=== PATIENT | male | born 1935 | race Caucasian/White ===

== ENCOUNTER 2016-05-25 19:19 | Inpatient (IN) | payer MEDICARE ==
[~2016-05-25] VITALS: Ht 165.1 cm; Wt 93.2 kg
[~2016-05-25 19:19] MED LIST: ALBU8.5H4 IH; ALLO300T29 PO; ASC500 PO; ASPI81TA2 PO; COR625 PO; INSU100C8 SQ; INSU100V7 SQ; LEVO750T9 PO; LSNP5T1 PO; PRE10 PO; PRE20 PO; PRE5 PO; QVAR40INH INH; SERT100T PO; SMV40T PO; URO10ERT PO
[2016-05-25 21:49] VITALS: BP 115/80; PULSE 100; RESP 24; O2SAT 97
[2016-05-25] MEDS ORDERED: AMIODARONE IV SCH ×2 (23:00)
[2016-05-25] MEDS ORDERED: DEXTROSE IV SCH ×2 (23:00)
[2016-05-25] MEDS ORDERED: Alum-Mag Hydrox-Simeth 30 mL Suspension PO PRN (23:20)
[2016-05-25] MEDS ORDERED: Ondansetron 2 mg/mL 2 mL Inj IVPUSH PRN (23:20)
[2016-05-25] MEDS ORDERED: Polyethylene Glycol (PEG) 17 Gm Powder PO PRN (23:20)
[2016-05-25] MEDS: Amiodarone 360 mg/200 mL D5W 360 MG in IV Premix 1 EACH IV SCH (23:51)
[2016-05-26] VITALS (8 sets, daily range): BP systolic 95–123; BP diastolic 56–81; PULSE 59–98; RESP 16–24; O2SAT 91–99
--- NOTE | 2016-05-26 00:17 | PCM.HPMED ---
Subjective Date of Service May 25, 2016 Primary Provider: Admitting Physician: Alvarado Villanueva MD Primary Care Physician: Roberth Duke MD Attending Physician: Alvarado Villanueva MD Admit Status: Direct Admit Chief Complaint: Generalized weakness, falls, near syncope History of Present Illness: Alban is a pleasant 81-year-old male with history of A. fib with RVR, diabetes mellitus type II on NovoLog and Lantus, coronary artery disease status post CABG , hypertension, hyperlipidemia, renal insufficiency who presented for direct admit to [facility] as direct transfer from [facility] with complaint of one-week history of falling, denied hitting head generalized weakness, and instability. At [facility] patient was found to be hypokalemic at 2.8, and EKG showed patient was in A. fib / RVR with aberrancy. Patient's potassium was repleted. Troponin was negative. Chest x-ray showed low lung volumes and cardiomegaly, nonspecific reticular opacity in the mid to low lung similar to prior exam. Patient was negative for UTI and pneumonia. Last echo showed ejection fraction of 50%. Cardiology was consulted and recommended Amiodarone drip for A. fib with RVR, which was started at [facility] ED. However hospital did not have sufficient beds for admission and patient was transferred to [facility]. At [facility] his daughter Beverly who is the DPOA states she found patient in kitchen this morning at about 05 100 leaning up against the kitchen counter and appearing unsteady. She says that patient began to fall and she helped him slowly to the floor. She denies that patient hit his head. Of note patient was recently diagnosed this past Sunday with a left lower extremity DVT and placed on Xarelto. Patient describes multiple episodes of vomiting phlegm over the past 2-3 weeks. Patient denied fevers nausea vomiting, diarrhea, dysuria, sweats, abdominal pain, constipation, hematuria, hematochezia, hematemesis. Temperature 36.6, pulse 100, respiratory rate 24, blood pressure 115/80, 97% on 4 L nasal cannula. Fingerstick blood glucose [facility] ED labs are as follows Hemogram : WBC's 10.6, hemoglobin 14.8, hematocrit 43.0, platelets 145, MCV 99.4 , neutrophils 7.2 high Chemistry panel sodium 132, potassium 2.8 (since repleted), chloride 83, CO2 34H , close to 68, BUN 50, creatinine 1.9, anion gap 15.0, lactic acid 2.1, troponin 0.04 (-), EKG showed rate of 125 and A. fib with RVR with Aberrancy. PT INR 17.0/1.5 Review of Systems: A complex review of systems is conducted and found to be negative except which was mentioned in history of present illness. Allergies Coded Allergies: No Known Allergies (Unverified Allergy, 07/21/11) Home Medications Advair Diskus 250/50 g per dose Albuterol inhaler Alfuzosin and 10 mg daily Allopurinol 300 mg tablet daily Vitamin C 500 mg mg tablet daily Aspirin 81 mg daily Lasix 40 mg daily NovoLog Insulin aspartate 100 units per milliliter Lantus insulin glargine 100 units per milliliter Metolazone 5 mg tablets Sertraline 50 mg tablet Simvastatin 40 mg tablet Vitamin D3 1000 units PMH Obstructive sleep apnea Atrial fibrillation with RVR Pulmonary fibrosis Renal insufficiency Congestive heart failure Malignant melanoma DJD of the hands Hyperlipidemia Hypertension Type II diabetes Depression Obesity Asthma BPH Gout Coronary artery disease status post coronary artery bypass graft 2 vessels Cervical spine fracture Surgical History Skin cancer surgery CABG Social History Hx Alcohol Use: Yes Hx Substance Use: No Hx Tobacco Use: Yes (Quit smoking 30 years ago) Smoking Status: Former Smoker Living Arrangement: with Family Exam Vital Signs Vital Sign - Last Date Time Temp Pulse Resp B/P Pulse Ox O2 Delivery O2 Flow Rate FiO2 05/25/16 21:49 36.6 100 24 115/80 97 Nasal Cannula 4.00 Exam General: Alert and oriented 3, resting comfortably in bed, speaking in full sentences, in no acute distress, with apparent tremor HEENT: NC/atraumatic, PERRLA, EOMI, neck, supple, no rigidity, no masses, no adenopathy, no JVD, throat no erythema Lungs: Bilateral lung crackles at the bases, left midlung crackles Heart: Irregularly irregular rhythm, no murmur Abdomen: Obese, bowel sounds hypoactive, soft, nontender, no organomegaly detected Genitourinary: No suprapubic pain Extremities: Left lower extremity with mild swelling compared to the right lower extremity patient had recently been diagnosed with DVT on the left, pulses are symmetric upper/lower Neurologic: Patient is neurologically intact, speaking full sentences, cranial nerves grossly intact bilaterally, muscle strength upper and lower extremity are equal and 5 out of 5, no focal signs, [id number] and [id number] was negative, facial expressions were symmetric, and sensation was symmetric, Skin: Skin appeared ecchymotic with large bruise on upper left extremity with IVs access bilaterally and upper extremity antecubital fossa appeared to be losing my mild amount of blood, skin was dry and cool to touch. Psychiatric: Patient's mood and affect were congruent, patient seemed cheerful Lab and Diagnostics X-Rays, CTs and MRIs Chest x-ray low lung volumes, cardiomegaly, nonspecific reticular opacity mid to low lung monterroso similar to what was seen on prior exam. 12-lead ECG Twelve-lead EKG from [facility] showed A. fib with RVR and aberrancy rate was 125 Assessment & Plan Alban is a pleasant 81-year-old male with history of A. fib with RVR, diabetes mellitus type II on NovoLog and Lantus, coronary artery disease status post CABG , hypertension, hyperlipidemia, renal insufficiency who presented for direct admit to [facility] as direct transfer from [facility] with complaint of one-week history of falling, denied hitting head generalized weakness, and instability. Patient was found to be in A. fib with RVR /aberrancy and placed on amiodarone drip per cardiology. Patient was transferred from [facility] to [facility] given lack of hospital bed. # A. fib with RVR and aberrancy, present on admission, active - Started amiodarone drip 360 mg return milliliters, 1.0 mg/m 6 hours, followed by 0.5 mg/m 18 hours - We will defer to daytime hospitalist team to consult with cardiology - EKG at [facility] showed greater than 125 A. fib with RVR and aberrancy - Troponin was negative at 0.[address] [facility], # Generalized weakness, present on admission, active - This is likely due to patient's history of electrolyte imbalance and history of atrial fibrillation. - It does not appear that patient was syncopal at any time, however as described by patient's daughter he has been experiencing weakness and has been falling over the past week. Patient and daughter deny that he is ever hit his head. - Lactic acid 2.1, anion gap 15.0 - PT consult in the morning # Left lower extremity DVT, present on admission, active - She was diagnosed this last Sunday with left lower extremity DVT and placed on Xarelto - Continue medications Xarelto # Hyponatremia, present on admission, active - Sodium 132 - We will continue to monitor # Hypokalemia, present on admission, active - Potassium 2.[address] [facility] and was repleted with potassium - We will continue to monitor # Hyperglycemia, present on admission, active - Bedside glucose 268 - He is a known type II diabetic on Lantus and NovoLog - We will start medium dose correctional scale insulin Other chronic problems Obstructive sleep apnea Paroxysmal Atrial fibrillation Pulmonary fibrosis Renal insufficiency -creatinine 1.9 Congestive heart failure Malignant melanoma DJD of the hands Hyperlipidemia Hypertension Type II diabetes Depression Obesity Asthma BPH Gout Coronary artery disease status post coronary artery bypass graft 2 vessels Cervical spine fracture Disposition:Admitted to in patient service with expected length of stay greater than 2 days, secondary to severity of presenting symptoms, treatment plan, complexity of clinical work up, and risk of adverse events. CODE STATUS: DNR/DNI DVT prophylaxis, continue home Xarelto VTE Prophylaxis: Other (patient takes Xarelto) Resuscitation Status: DNR/DNI:Do Not Resuscitate/Intubate Attending Statement The patient was seen and examined together with Dr. Ring on 05/25 and I agree with the history, exam and plan as outlined in the note above. Adrián Ring DO May 26, 2016 00:17 Alvarado Villanueva MD May 26, 2016 03:08
[2016-05-26] MEDS ORDERED: Glucose 40% Oral Gel 15 Gm Tube PO PRN (00:20)
[2016-05-26 05:33] LABS: BASOPHILS % (AUTO) 0.4 % (0-3); EOSINOPHILS % (AUTO) 2.8 % (0-5); MONOCYTES % (AUTO) 14.4 % (4-12); Mean Corpuscular Hemoglobin 34.1 pg (27.0-35.0); Platelet Count 144 bil/L (150-400)
[2016-05-26 05:53] LABS: APPEARANCE,URINE CLEAR (CLEAR,HAZY); COLOR,URINE YELLOW (YELLOW); OCCULT BLOOD,URINE NEGATIVE (NEGATIVE); UROBILINOGEN,URINE NORMAL (NORMAL)
[2016-05-26 05:54] LABS: Magnesium 2.2 mg/dL (1.6-2.6)
--- NOTE | 2016-05-26 06:01 | NUR ---
Admit Admitted to 2030 via EMS from [facility] for syncope and V Tach. Able to stand and ambulate to bed on arrival with noted unsteady gait and weakness. 4L NC with c/o GATICA but denies SOB @ rest. Tele Afib HR 90-120's without c/o CP. Tolerating PO intake without any difficulties. NPO at midnight per MD with verbal understanding from patient and compliance. Voiding per urinal without any noted issues. Last reported BM 05/24/16. Several bruises noted throughout body which patient states are from falls. Abrasions and scratches also noted which he states are from his dogs. Amiodarone gtt initiated prior to arrival to hospital and continued @ 0.5mg/min per orders. Personal belongings at bedside per patient request. Oriented to call light use with return demonstration. Educated on risk of injury from falls and encouraged to use call light for assist and wait for nursing prior to exiting bed with verbal understanding.
[2016-05-26] MEDS: Amiodarone 360 mg/200 mL D5W 360 MG in IV Premix 1 EACH IV SCH (08:36)
[2016-05-26] MEDS: Ascorbic Acid 500 mg Tablet PO SCH (08:37)
[2016-05-26] MEDS: Insulin LISPRO 300 Unit/3 mL Inj SUBQ SCH ×4 (08:50→21:03)
[2016-05-26 11:04] LABS: INR 1.04 ratio
--- NOTE | 2016-05-26 13:52 | DRSVH ---
PROCEDURE: US VENOUS LEG DUPLEX BILATERAL INDICATIONS: hx of DVT TECHNIQUE: Real-time imaging, as well as color and pulse Doppler interrogation, were performed of the deep veins of both legs from the inguinal ligament to the popliteal fossa. COMPARISON: None. FINDINGS: The deep veins of the right lower extremity are normally compressible, and free of intralu jose thrombus. Color and pulse Doppler demonstrate normal phasic intravascular flow. There is norm al augmentation response to distal compression. In contrast, on the left, there is occlusive DVT involving the common femoral vein through the distal superficial femoral vein and also nonocclusive thrombus at the popliteal and posterior tibial vein. . IMPRESSION: Extensive DVT on the left, no DVT found on the right. Dictated by: Nathan Kelly M.D. on 05/26/2016 at 13:49 Approved by: Nathan Kelly M.D. on 05/26/2016 at 13:50
[2016-05-26] MEDS ORDERED: FURO40TA4 PO (14:08)
[2016-05-26] MEDS ORDERED: METO5TAB5 PO (14:09)
[2016-05-26] MEDS ORDERED: CHOL10008 PO (14:10)
--- NOTE | 2016-05-26 15:54 | PCM.CHPCAR ---
Consult Subjective Date of service May 26, 2016 Date of admit May 25, 2016 at 21:34 Provider Requesting Consult Primary Care Physician Primary Care Provider: Roberth Duke MD Chief Complaint A-Fib History of Present Illness Mr. Monique is an 81 year old male with PMH of A-fib with RVR, CAD s/p 2 vessel CABG in 2002, HTN, HLD and Bilateral lower extremity DVT. Pt was a direst transfer from [facility] who was at capacity where he was found to be in A. fib / RVR with aberrancy. Patient was hypokalemic at 2.8 and repleted at [facility]. See x-ray reportedly showed low lung volumes with cardiomegaly. Last echo showed EF 50%. Cardiology started patient on amiodarone drip. Per patient's daughter patient said to be unsteady on his feet 1 week with repeated falls, patient recently started on Xarelto secondary to lower extremity DVT diagnosis on 05/22/2016. Pt states that he has been feeling lightheaded over the last month, especially when moving from sitting to standing. He states that he has received the diagnosis of A-fib over 1 year ago and has been on warfarin though he stopped this 5 month ago. He reports also stopping his carvedilol 4 months ago, but cannot recall the reason. Pt's primary care is Gary Triana in [place]. Review of Systems Review of Systems At time of dictation telemetry shows A-fib possibly A-flutter, with a rate of 96. Patient is asymptomatic REVIEW OF SYSTEMS Constitutional: Denies Chills, Fever, Sweats, Weakness Eyes: Denies Blurred Vision, Pain, Vision Changes Cardiovascular: Denies Chest Pain, Edema, states he does not feel a Irregular Heart Rate or any Palpitations. Denies Rapid Heart Rate. Endorses SOB on Exertion Respiratory: Denies Cough, Cough with bloody sputum, Wheezing Gastrointestinal: Denies Abdominal Pain, Constipation, Diarrhea, Heartburn, Nausea, Vomiting Neurological: Denies Change in LOC, Change in Speech, Confusion, Difficulty Walking, Double Vision, Drooping Mouth, Incoordination, Localized Weakness, Numbness, Tremors. Endorses dizziness upon standing. Hematologic: Denies Abnormal Bleeding, Bruising Lymphatic: Denies Adenopathy Problem List: # Chronic A Fib # CAD # CHF # DVT # HTN # HLD PMH Past Medical History # Obstructive sleep apnea # Atrial fibrillation with RVR # Pulmonary fibrosis # Renal insufficiency # Congestive heart failure # Malignant melanoma # DJD of the hands # Hyperlipidemia # Hypertension # Type II diabetes # Depression # Obesity # Asthma # BPH # Gout # Coronary artery disease status post coronary artery bypass graft 2 vessels # Cervical spine fracture Past Surgical History # Skin cancer surgery # CABG Bedside Blood Glucose: 247 Scheduled Albuterol-Expunged Drug, Do Not Renew! (Albuterol-Expunged Drug, Do Not Renew!) 8.5 Gm Hfa.aer.ad 2 PUFFS IH Q3-4HP (Reported) for shortness of breath Alfuzosin-Expunged Drug, Do Not Renew! (Uroxatral-Expunged Drug, Do Not Renew!) 10 Mg Tablet 10 MG PO DAILY (Reported) for prostate Allopurinol-Expunged Drug, Do Not Renew! (Allopurinol-Expunged Drug, Do Not Renew!) 300 Mg Tablet 300 MG PO DAILY (Reported) for gout Ascorbic Acid-Expunged Drug, Do Not Renew! (Vitamin C-Expunged Drug, Do Not Renew!) 500 Mg Tablet 500 MG PO DAILY (Reported) vitamin supplement Aspirin-Expunged Drug, Do Not Renew! (Aspirin-Expunged Drug, Do Not Renew!) 81 Mg Tablet 81 MG PO DAILY (Reported) for heart Beclomethasone Dip-Expunged Drug, Do Not Willi (Qvar 40-Expunged Drug, Do Not Renew!) 120 Puffs/8.7 Gm Aero 1 PUFFS INH BID (Reported) for lungs Carvedilol-Expunged Drug, Do Not Renew! (Carvedilol-Expunged Drug, Do Not Renew! ) 6.25 Mg Tablet 6.25 MG PO BID (Reported) for heart Furosemide (Furosemide) 40 Mg Tablet 40 MG PO DAILY (Reported) Insulin Aspart-Expunged Drug, Do Not Renew! (Novolog-Expunged Drug, Do Not Renew !) 100 U/Ml Cartridge 10-20 U SQ TIDWM (Reported) for blood sugar Insulin Glargine-Expunged Drug, Do Not Renew! (Lantus-Expunged Drug, Do Not Renew!) 100 Unit/1 Ml Vial 60 UNIT SQ HS (Reported) for blood sugar Levofloxacin-Expunged Drug, Do Not Renew! (Levaquin-Expunged Drug, Do Not Renew! ) 750 Mg Tablet 750 MG PO DAILY (Reported) for pnuemonia Lisinopril-Expunged Drug, Do Not Renew! (Lisinopril-Expunged Drug, Do Not Renew! ) 5 Mg Tablet 5 MG PO DAILY (Reported) for high blood pressure Metolazone (Metolazone) 5 Mg Tablet 5 MG PO DAILY (Reported) Sertraline-Expunged Drug, Choose New Med! (Sertraline-Expunged Drug, Choose New Med!) 100 Mg Tablet 100 MG PO DAILY (Reported) for depression Simvastatin-Expunged Drug, Choose New Med! (Simvastatin-Expunged Drug, Choose New Med!) 40 Mg Tablet 40 MG PO HS (Reported) for high cholesterol Miscellaneous Medications Cholecalciferol (Vitamin D3) (Vitamin D3) 1,000 Unit Tab.chew 1,000 UNIT PO ( Reported) Discontinued Medications PredniSONE-Expunged Drug, Do Not Renew! (PredniSONE-Expunged Drug, Do Not Renew! ) 20 Mg Tab 20 MG PO DAILY (Reported) for lungs take 20 mg for 4 days then decrease PredniSONE-Expunged Drug, Do Not Renew! (PredniSONE-Expunged Drug, Do Not Renew! ) 10 Mg Tab 15 MG PO DAILY (Reported) for lungs take 15 mg for 4 days then decrease PredniSONE-Expunged Drug, Do Not Renew! (PredniSONE-Expunged Drug, Do Not Renew! ) 10 Mg Tab 10 MG PO DAILY (Reported) for lungs take 10 mg for 3 days then decrease PredniSONE-Expunged Drug, Do Not Renew! (PredniSONE-Expunged Drug, Do Not Renew! ) 5 Mg Tab 5 MG PO DAILY (Reported) for lungs take 5 mg for 3 days then stop Current Inpatient Medications Current Medications Amiodarone HCl 900 mg/Dextrose/ Water/IV Miscellaneous Supplies 500 ml @ 0 mls/ hr Q0M IV; Start 05/25/16 at 23:00; Status Cancel Amiodarone HCL/ Dextrose/Premix 200 ml @ 0 mls/hr Q0M IV Last administered on t 08:36; Admin Dose 16.7 MLS/HR; Start 05/25/16 at 23:02 Al Hydrox/Mg Hydrox/Simethicone 30 ml Q6H PRN PO; Start 05/25/16 at 23:20 Ondansetron HCl 4 to 8 mg Q4H PRN IVPUSH; Start 05/25/16 at 23:20 Senna 17.2 mg BID PRN PO; Start 05/25/16 at 23:20 Polyethylene Glycol 17 gm DAILY PRN PO; Start 05/25/16 at 23:20 Acetaminophen 650 mg Q6H PRN PO; Start 05/25/16 at 23:20 Insulin Human Lispro Nutritional Dose to be given pr... [facility] SUBQ Last administered on 05/26/16 11:51; Admin Dose 3 UNIT; Start 05/26/16 at 08:00 Allopurinol 300 mg DAILY PO Last administered on 05/26/16 08:37; Admin Dose 300 MG; Start 05/26/16 at 08:30 Tamsulosin HCl 0.4 mg DAILY PO Last administered on 05/26/16 08:37; Admin Dose 0.4 MG; Start 05/26/16 at 08:30 Ascorbic Acid 500 mg DAILY PO Last administered on 05/26/16 08:37; Admin Dose 500 MG; Start 05/26/16 at 08:30 Aspirin 81 mg DAILY PO Last administered on 05/26/16 08:37; Admin Dose 81 MG; Start 05/26/16 at 08:30 Sertraline HCl 100 mg DAILY PO Last administered on 05/26/16 08:37; Admin Dose 100 MG; Start 05/26/16 at 08:30 Atorvastatin Calcium 20 mg HS PO; Start 05/26/16 at 21:00 Allergies: Coded Allergies: No Known Allergies (Unverified Allergy, 07/21/11) Family History Family History Mother suffered fatal RI in her 90's Father CAD, Fatal RI unknown age Social History Hx Alcohol Use: YesHx Substance Use: NoHx Tobacco Use: Yes (Quit smoking 30 years ago) Smoking Status: Former Smoker Living Arrangement: with Family Exam Vital Signs Vital Sign - Last Date Time Temp Pulse Resp B/P Pulse Ox O2 Delivery O2 Flow Rate FiO2 05/26/16 11:47 36.6 95 20 123/60 97 Nasal Cannula 4.00 Intake and Output 05/25/16 05/25/16 05/26/16 Cumulative From/Thru 15:00 23:00 07:00 05/25/16 21:47 - 05/26/16 06:25 Intake Total 316 ml 316 ml Output Total 550 ml 550 ml Balance -234 ml -234 ml Intake Oral 200 ml 200 ml IV Total 116 ml 116 ml Output Urine Total 550 ml 550 ml Objective General: Patient awake alert lying in bed in no acute distress, well-developed, well-nourished, appropriately interactive HEENT: Normocephalic, atraumatic. External ears without defect. Pupils equal, round, and reactive to light and accommodation. Neck:No jugular venous distension. No bruits. Cardiovascular: Regular rate with irregularly irregular rhythm no murmurs appreciated. Pulmonary: Crackles lung bases bilaterally. Normal respiratory effort with no use of accessory muscles. Abdomen: Bowel tones present. Soft, nontender, nondistended. No hepatosplenomegaly or masses appreciated. Extremities: Bilateral lower extremity edema, symmetric pulses. Pain to palpation left lower extremity. Neurological: Cranial nerves grossly intact. Psychiatric: Normal mood and affect. Alert and oriented to person, place, and time. Lab and Diagnostics Result Diagram: 05/26/1651205/26/16512 X-Rays, CTs and MRIs Lower extremity ultrasound: Extensive DVT on the left, no DVT found on the right. Assessment & Plan Assessment Alban is a pleasant 81-year-old male with history of A. fib with RVR, CAD status post CABG, hypertension, hyperlipidemia # Atrial fibrillation with rapid ventricular rate. Symptomatic on admission due to rapid ventricular response but symptoms resolved with rate control on amiodarone drip. TSH normal, electrolytes normal. EKG showed A. fib with old anterior infarct, mild ST elevation in leads V2, V3. Troponin reported to be 0.04 at [facility] but troponin at [facility] negative. Previous ECHO 2011 showed EF of 30-35%. - DC Amiodarone Drip and convert to amiodarone 400mg bid X 5 days - Carvedilol 3.125mg BID, will consider increasing to 6.25 tomorrow - Apixaban as below # CAD with history of CABG and stent placement. Patient is not followed by [facility] cardiology. - ECHO ordered # Chronic systolic congestive heart failure, echo as above. Patient reportedly stopped taking homemade carvedilol though does endorse home med furosemide. - Pt home dose Furosemide 40mg held secondary to blood pressure concerns # Left lower extremity DVT, ultrasound showed Extensive DVT on the left, no DVT found on the right. Patient reportedly started on Xarelto 05/22/2016 unknown dose. PT 11.1, INR 1.04. -Start apixaban 10mg bid X7 days for DVT treatment and then 5mg bid # Hypertension, patient's last blood pressures remained in the normal range - Continue to monitor, consider adding KARYN if indicated # Hyperlipidemia - Atorvastatin 20 mg at bedtime We will need to obtain outpatient primary care records to verify current medication regimen. VTE Prophylaxis: Other (patient takes Xarelto) Resuscitation Status: DNR/DNI:Do Not Resuscitate/Intubate Attending Statement I saw, examined, and evaluated the patient with Dr. Jose Elias Lazo on 05/26/2016 and agree with the note as above along with my edits. JOSE ELIAS LAZO DO May 26, 2016 14:11 Harvey Wise MD May 26, 2016 17:35
--- NOTE | 2016-05-26 18:16 | DRSVH ---
[facility] [address] [place] [place] [address] Echocardiogram Report Name: MIKHAIL DUMONT Study Date: 05/26/2016 Height : 65 in Hospital Exam Location: [facility] Weight : 205 lb Gender: Male BSA: 2 .0 m2 : 1935 Age: 81 yrs BP: 95 /76 mmHg Reason For Study: Atrial fibrillation Ordering Physician: HOSPITALIST [facility] Performed By: Brianna Birch Referring Physician: Dr. Roberth Duke Interpretation Summary The left ventricle is mildly dilated. The ejection fraction is estimated to be 15-20%. Compared to the prior exam, the left ventricular function is reduced (In 07/2011 it was 30 to 35%). Except base to mid posterolateral and base to mid lateral wall, rest of the LV segments are akinetic with flattened and dyskinetic septum. Compared to the prior exam, the inferior wall motion abnormality has increased in severity. The right ventricle is moderately dilated. Right ventricular systolic function is moderately reduced. This is decreased compared to the previous study. In RV long axis view, an echogenic, thick linear shadows seen with possibility of pacemaker leads. Correlate clinically. There is mild to moderate tricuspid regurgitation. Compared to the prior echo exam, there has been an increase in TR severity. The right ventricular systolic pressure is estimated at 28 mmHg assuming a right atrial pressure of 3 mm Hg. The patient was in atrial flutter with heart rates between 85-100 bpm during the exam (New). Procedure: A two-dimensional transthoracic echocardiogram with color flow and Doppler was performed. The study quality was technically adequate. The patient was in atrial flutter with heart rates between 85-100 bpm during the exam. Left Ventricle: There is normal left ventricular wall thickness. The left ventricle is mildly dilated. There is no thrombus. The ejection fraction is estimated to be 15-20%. Compared to the prior exam, the left ventricular function is reduced. Except base to mid posterolateral and base to mid lateral wall, rest of the LV segments are akinetic with flattened and dyskinetic septum. Compared to the prior exam, the inferior wall motion abnormality has increased in severity. Diastolic function could not be accurately assessed due to atrial fibrillation. Right Ventricle: The right ventricle is moderately dilated. A calcified moderator band is seen in the right ventricle. The right ventricle appears to be hypertrophied. Right ventricular systolic function is moderately reduced. This is decreased compared to the previous study. Atria: The left atrium is mildly dilated. The left atrium has mildly increased in size since the prior echo exam. The right atrium grossly appears normal in size. In RV long axis view, an echogenic, thick linear shadows seen with possibility of pacemaker leads. Correlate clinically. The interatrial septum is intact with no evidence for an atrial septal defect. Mitral Valve: There is mild mitral annular calcification. There is trace mitral regurgitation. Aortic Valve: The aortic valve opens well. The aortic valve is trileaflet. There is no aortic valve stenosis. There is no aortic regurgitation. Tricuspid Valve: The tricuspid valve is not well visualized, but is grossly normal. There is mild to moderate tricuspid regurgitation. Compared to the prior echo exam, there has been an increase in TR severity. The right ventricular systolic pressure is estimated at 28 mmHg assuming a right atrial pressure of 3 mm Hg. Pulmonic Valve: The pulmonic valve is not well seen, but is grossly normal. There is trace pulmonic regurgitation. Great Vessels: The aortic root is normal size. The dimensions of the ascending aorta are normal. The IVC is of normal diameter and collapses greater than 50% with a sniff. This suggests a low right atrial pressure of 3 mm Hg. Pericardium/ Pleura There is no pericardial effusion. There is no pleural effusion. MMode/2D Measurements & Calculations LVIDd: 5.2 cmLA dimension: 3.9 cm RA long axis: 5.9 cm Ao root diam LVIDs: 4.4 cm FS: 15.5 % LA A2 area: 23.5 cm RA area: 18.0 cm Aortic Jxn: 3.1 cm IVSd: 0.87 cmLA A4 area: 23.7 cm RA vol: 47.1 ml asc Aorta Diam LVPWd LA length (vol) RA : 23.5 ml/m : 0.8cm RVDd major: 7.5 cm Ao Arch Diam (Prox LA vol: 73.1 ml Trans): 3.7 cm LA vol index IVC diam: 1.3 cm EDV(MOD-sp2) LV patton. diameter/BSA LV sys. diameter/BSA RVD1 (basal) (cm/m^2): 2.6 (cm/m^2): 2.2 : 4.7 cm RVD2 (mid) : 3.6 cm Doppler Measurements & Calculations Ao V2 max MV P1/2t: 57.9 msec Med Peak E' Romain TR max romain : 132.7 cm/sec : 248.3 cm/sec Ao max PG Lat Peak E' Romain TR max PG : 7.0 mmHg : 24.7 mmHg Ao mean PG PA V2 max : 3.3 mmHg : 96.8 cm/sec PA mean PG PA Accel Time : 0.10 sec MV V2 mean MV P1/2t max romain Ao V2 mean PA V2 mean : 55.0 cm/sec : 83.8 cm/sec : 52.3 cm/sec MV mean PG Ao V2 VTI: 22.9 cm MVA(P1/2t): 3.8 cm2 MV V2 VTI : 13.9 cm Reading Physician:PM
--- NOTE | 2016-05-26 19:45 | PCM.PNMED ---
Subjective Date of Service May 26, 2016 Subjective Mr. Alban Monique is a pleasant 81-year-old male with history of A. fib with RVR, diabetes mellitus type II on NovoLog and Lantus, coronary artery disease status post CABG, hypertension, hyperlipidemia, renal insufficiency, and pulmonary fibrosis who presented for direct admit to [facility] as direct transfer from [facility] with complaint of one-week history of falling, denied hitting head generalized weakness, and instability. He has a DVT in his left leg that was found 4 days ago (Sunday of this week). Today is hospital day 1. Today, Mr. Monique does not have any chest pain, palpitations, or worsening shortness of breath from his baseline. He has a chronic productive cough that has not worsened. He denies fever, chills, vomiting, diarrhea, leg edema, hematochezia, and melena. Patient did not lose consciousness or hit his head when his legs went weak and he went to the floor. He is on 4 liters of oxygen at home for 24 hours per day for pulmonary fibrosis. Exam Vital Signs Vital Sign - Last Date Time Temp Pulse Resp B/P Pulse Ox O2 Delivery O2 Flow Rate FiO2 05/26/16 08:27 Supplement Oxygen 05/26/16 08:22 36.6 98 16 110/71 97 4.00 Intake and Output 05/25/16 05/25/16 05/26/16 Cumulative From/Thru 15:00 23:00 07:00 05/25/16 21:47 - 05/26/16 06:25 Intake Total 316 ml 316 ml Output Total 550 ml 550 ml Balance -234 ml -234 ml Intake Oral 200 ml 200 ml IV Total 116 ml 116 ml Output Urine Total 550 ml 550 ml Exam General: Alert and oriented 3, resting comfortably in bed, speaking in full sentences, in no acute distress, with apparent tremor HEENT: NC/atraumatic, PERRLA, EOMI, neck, supple, no rigidity, no masses, no adenopathy, no JVD, throat no erythema Lungs: Bilateral lung crackles at the bases Heart: Regular rate and rhythm, no murmur Abdomen: Obese, bowel sounds hypoactive, soft, nontender, no organomegaly detected Genitourinary: No suprapubic pain Extremities: Left lower extremity with mild swelling compared to the right lower extremity patient had recently been diagnosed with DVT on the left, pulses are symmetric upper/lower. Non-tender bilateral lower extremities. Neurologic: Patient is neurologically intact, speaking full sentences, cranial nerves grossly intact bilaterally Skin: Skin appeared ecchymotic with large bruise on upper left extremity with IVs access bilaterally and upper extremity antecubital fossa appeared to be losing my mild amount of blood, skin was dry and cool to touch. Psychiatric: Patient's mood and affect were congruent, patient seemed cheerful IVs and Medications Medications Reviewed: Medications were reviewed in detail Lab and Diagnostics Result Diagram: 05/26/1651205/26/16512 X-Rays, CTs and MRIs Chest x-ray low lung volumes, cardiomegaly, nonspecific reticular opacity mid to low lung monterroso similar to what was seen on prior exam. 12-lead ECG Twelve-lead EKG from [facility] showed A. fib with RVR and aberrancy rate was 125 Cardiac Echo Impressions Echocardiogram Report Interpretation Summary The left ventricle is mildly dilated. The ejection fraction is estimated to be 15-20%. Compared to the prior exam, the left ventricular function is reduced (In 07/2011 it was 30 to 35%). Except base to mid posterolateral and base to mid lateral wall, rest of the LV segments are akinetic with flattened and dyskinetic septum. Compared to the prior exam, the inferior wall motion abnormality has increased in severity. The right ventricle is moderately dilated. Right ventricular systolic function is moderately reduced. This is decreased compared to the previous study. In RV long axis view, an echogenic, thick linear shadows seen with possibility of pacemaker leads. Correlate clinically. There is mild to moderate tricuspid regurgitation. Compared to the prior echo exam, there has been an increase in TR severity. The right ventricular systolic pressure is estimated at 28 mmHg assuming a right atrial pressure of 3 mm Hg. The patient was in atrial flutter with heart rates between 85-100 bpm during the exam (New). Reading Physician: PM Additional Diagnostics PROCEDURE: US VENOUS LEG DUPLEX BILATERAL IMPRESSION: Extensive DVT on the left, no DVT found on the right. Approved by: Nathan Kelly M.D. on 05/26/2016 at 13:50 Assessment & Plan Alban is a pleasant 81-year-old male with history of A. fib with RVR, diabetes mellitus type II on NovoLog and Lantus, coronary artery disease status post CABG , hypertension, hyperlipidemia, renal insufficiency, and pulmonary fibrosis who presented for direct admit to [facility] as direct transfer from [facility] with complaint of one-week history of falling, denied hitting head, generalized weakness, and instability. Today is hospital day 1. 1. Atrial fibrillation with rapid ventricular rate and aberrancy, present on admission, Active. - Started amiodarone drip 360 mg return milliliters, 1.0 mg/m for 6 hours, followed by 0.5 mg/m for 18 hours - EKG at [facility] showed greater than 125 A. 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 Their time and recommendations are appreciated. - Amiodarone drip discontinued and started on amiodarone 400 mg twice per day for 5 days - Also started on carvedilol 3.125 mg twice per day for now - Started on apixaban 2.Generalized weakness, present on admission, active - This is likely due to patient's atrial fibrillation, lower extremity deep vein thrombosis, and congestive heart failure. Electrolyte imbalance at [facility], which has now resolved, likely contributed to his weakness - It does not appear that patient was syncopal at any time, however as described by patient's daughter he has been experiencing weakness and has been falling over the past week. Patient and daughter deny that he never hit his head. 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 Left lower extremity deep vein thrombosis, present on admission, active -Confirmed by an ultrasound performed here - Patient was diagnosed this Sunday (4 days ago) with left lower extremity deep vein thrombosis and placed on Xarelto dose unknown -Started on apixaban 10mg twice per day for 7 days for deep vein thrombosis treatment and then 5mg twice per day 4. Chronic systolic congestive heart failure, present on admission. stable. - Echocardiogram done here in 2011 showed reduced ejection fraction of 30-35% -Patient had a more recent echocardiogram done in 2013 in in [place] that reported an ejection fraction of 50% -Echocardiogram repeated today and showed an ejection fraction of 15-20% -Cardiology consulted and following. Their time and recommendations are appreciated 5. Chronic respiratory failure secondary to pulmonary fibrosis, present on admission, stable. -Patient reports chronic 4 liters of oxygen use at home -His oxygen saturation is 99% on 4 liters of oxygen by nasal cannula. 6. Hyponatremia, present on admission, resolved - Sodium 132 at [facility] but 138 today - We will continue to monitor 7. Hypokalemia, present on admission, resolved - Potassium 2.8 at [facility] and was repleted with potassium. Now 3.6 today - We will continue to monitor 8. Hyperglycemia, present on admission, active - Bedside glucose 268 and lab glucose 332 - He is a known type II diabetic on Lantus and NovoLog - Continue medium dose correctional scale insulin Other chronic problems Obstructive sleep apnea Paroxysmal Atrial fibrillation Pulmonary fibrosis Renal insufficiency -creatinine 1.9 Congestive heart failure Malignant melanoma DJD of the hands Hyperlipidemia Hypertension Type II diabetes Depression Obesity Asthma BPH Gout Coronary artery disease status post coronary artery bypass graft 2 vessels Cervical spine fracture Acetaminophen for mild pain when necessary. Bowel regimen Senna and MiraLAX scheduled and PRN. Zofran when necessary for nausea and vomiting. Disposition:Admitted to in patient service with expected length of stay greater than 2 days, secondary to severity of presenting symptoms, treatment plan, complexity of clinical work up, and risk of adverse events. CODE STATUS: DNR/DNI DVT prophylaxis apixaban VTE Prophylaxis: Other (patient takes Xarelto) Resuscitation Status: DNR/DNI:Do Not Resuscitate/Intubate Attending Statement The patient was seen and examined together with Dr. Padron on 05/26/2016 and I agree with the history, exam and plan as outlined in the note above. . Sarah Padron DO May 26, 2016 09:45 Tuan Leslie MD May 27, 2016 08:29
[2016-05-27] VITALS (10 sets, daily range): BP systolic 91–115; BP diastolic 56–88; PULSE 54–100; RESP 16–22; O2SAT 96–99
[2016-05-27 05:05] LABS: BASOPHILS % (AUTO) 0.3 % (0-3); EOSINOPHILS % (AUTO) 3.1 % (0-5); MONOCYTES % (AUTO) 15.8 % (4-12); Mean Corpuscular Hemoglobin 34.1 pg (27.0-35.0); Mean Corpuscular Volume 100.2 fL (81-100); Platelet Count 128 bil/L (150-400)
--- NOTE | 2016-05-27 06:43 | NUR ---
Tele Pt tele was Afib 90s for most of night, converted to SR around 0530 this morning w/ rate in mid 50s. EKG ordered and in chart. MD notified. SBP 90s-100s, pt denied chest or any other pain throughout night. Pt appeared to rest comfortably between care interventions, norma alarm used for safety, blood sugars 200s.
[2016-05-27] MEDS: Ascorbic Acid 500 mg Tablet PO SCH (09:15)
[2016-05-27] MEDS: Insulin LISPRO 300 Unit/3 mL Inj SUBQ SCH ×4 (09:16→21:50)
--- NOTE | 2016-05-27 10:24 | PCM.PNCARD ---
Subjective Date of service May 27, 2016 Chief Complaint A-Fib History of Present Illness Mr. Monique is an 81 year old male with PMH of A-fib with RVR, CAD s/p 2 vessel CABG in 2002, HTN, HLD and Bilateral lower extremity DVT. Pt was a direst transfer from [facility] who was at capacity where he was found to be in A. fib / RVR with aberrancy. Patient was hypokalemic at 2.8 and repleted at [facility]. See x-ray reportedly showed low lung volumes with cardiomegaly. Last echo showed EF 50%. Cardiology started patient on amiodarone drip. Per patient's daughter patient said to be unsteady on his feet 1 week with repeated falls, patient recently started on Xarelto secondary to lower extremity DVT diagnosis on 05/22/2016. Pt states that he has been feeling lightheaded over the last month, especially when moving from sitting to standing. He states that he has received the diagnosis of A-fib over 1 year ago and has been on warfarin though he stopped this 5 month ago. He reports also stopping his carvedilol 4 months ago, but cannot recall the reason. Pt's primary care is Gary Triana in [place]. Subjective: Overnight patient was reported to be in A. fib with a heart rate of 90s throughout most of the night, converted to sinus rhythm around 5:30 this morning with rate in the mid 50s. Patient was asymptomatic and rested comfortably throughout the night. Patient states no complaints overnight. Patient and family interested in hospice care. REVIEW OF SYSTEMS Constitutional: Denies Chills, Fever, Sweats, Weakness Eyes: Denies Blurred Vision, Pain, Vision Changes Cardiovascular: Denies Chest Pain, Edema, states he does not feel a Irregular Heart Rate or any Palpitations. Denies Rapid Heart Rate. Endorses SOB on Exertion. Overall feels much better Respiratory: Denies Cough, Cough with bloody sputum, Wheezing Gastrointestinal: Denies Abdominal Pain, Constipation, Diarrhea, Heartburn, Nausea, Vomiting Neurological: Denies Change in LOC, Change in Speech, Confusion, Hematologic: Denies Abnormal Bleeding, Bruising Lymphatic: Denies Adenopathy Problem List: # Chronic A Fib # CAD # CHF # DVT # HTN # HLD Exam Vital Signs Vital Sign - Last Date Time Temp Pulse Resp B/P Pulse Ox O2 Delivery O2 Flow Rate FiO2 05/27/16 08:54 36.8 63 22 104/65 98 Nasal Cannula 3.50 Intake and Output 05/26/16 05/26/16 05/27/16 Cumulative From/Thru 15:00 23:00 07:00 05/25/16 21:47 - 05/27/16 06:25 Intake Total 240 ml 300 ml 856 ml Output Total 900 ml 550 ml 2000 ml Balance -660 ml -250 ml -1144 ml Intake Oral 300 ml 500 ml IV Total 240 ml 356 ml Output Urine Total 900 ml 550 ml 2000 ml # Voids 1 1 Additional Information: Objective General: Patient awake alert lying in bed in no acute distress, well-developed, well-nourished, appropriately interactive HEENT: Normocephalic, atraumatic. External ears without defect. Pupils equal, round, and reactive to light and accommodation. Hard of hearing Neck:No jugular venous distension. No bruits. Cardiovascular: Bradycardic rate with irregularly irregular rhythm no murmurs appreciated. Pulmonary: Crackles lung bases bilaterally. Normal respiratory effort with no use of accessory muscles. Abdomen: Soft, nontender, nondistended. Extremities: Bilateral lower extremity edema - much improved from yesterday, symmetric pulses. Pain to palpation left lower extremity. Neurological: Cranial nerves grossly intact. Psychiatric: Normal mood and affect. Alert and oriented to person, place, and time. Lab and Diagnostics Result Diagram: 05/27/167 05/27/16 0457 Additional Diagnostics: Echocardiogram Report Interpretation Summary: The left ventricle is mildly dilated. The ejection fraction is estimated to be 15-20%. Compared to the prior exam, the left ventricular function is reduced ( In 07/2011 it was 30 to 35%). Except base to mid posterolateral and base to mid lateral wall, rest of the LV segments are akinetic with flattened and dyskinetic septum. Compared to the prior exam, the inferior wall motion abnormality has increased in severity. The right ventricle is moderately dilated. Right ventricular systolic function is moderately reduced. This is decreased compared to the previous study. In RV long axis view, an echogenic, thick linear shadows seen with possibility of pacemaker leads. Correlate clinically. There is mild to moderate tricuspid regurgitation. Compared to the prior echo exam, there has been an increase in TR severity. The right ventricular systolic pressure is estimated at 28 mmHg assuming a right atrial pressure of 3 mm Hg. The patient was in atrial flutter with heart rates between 85-100 bpm during the exam (New). US VENOUS LEG DUPLEX BILATERAL IMPRESSION: Extensive DVT on the left, no DVT found on the right. Assessment & Plan Assessment Alban is a pleasant 81-year-old male with history of A. fib with RVR, CAD status post CABG, hypertension, hyperlipidemia # Atrial fibrillation with rapid ventricular rate. Symptomatic on admission due to rapid ventricular response but symptoms resolved with rate control on amiodarone drip. TSH normal, electrolytes normal. EKG overnight showed A. fib with no chelly ST changes. Troponin reported to be 0.04 at [facility] but troponin at [facility] negative. Previous ECHO 2011 showed EF of 30-35%. Patient converted to sinus rhythm on 05/27/2016 at approximately 5:30 AM. Continues to be in sinus rhythm in the 50s to 60s and remains A-symptomatic and free of CP. - DC Amiodarone Drip and convert to amiodarone 400mg daily X 5 days - Continue carvedilol 3.125mg BID, consider increasing this to 6.25 as outpatient - Apixaban as below # CAD with history of CABG and stent placement. Patient is not followed by [facility] cardiology. - ECHO done 05/27/2016 showed mildly dilated left ventricle with an EF of 15-20 % reduced from 30-35% (07/2011), and increased inferior wall motion abnormality from prior exam. Increase in severity of tricuspid regurgitation. # Chronic systolic congestive heart failure, echo as above. Patient reportedly stopped taking homemade carvedilol though does endorse home med furosemide. - Pt home dose Furosemide 40mg held secondary to blood pressure concerns - Echo as above # Left lower extremity DVT, ultrasound showed Extensive DVT on the left, no DVT found on the right. BNP 1881. Patient reportedly started on Xarelto Sunday, unknown dose. PT 11.1, INR 1.04. -Apixaban 10mg bid X7 days for DVT treatment and then 5mg bid # Hypertension, patient's last blood pressures remained in the normal range - Continue to monitor, consider adding KARYN-I if BP allows # Hyperlipidemia - Atorvastatin 20 mg at bedtime # Hospice: patient requests hospice. I told the primary team about it and will defer it to them for further arrangements. Problems: VTE Prophylaxis: Other (patient takes Xarelto) Resuscitation Status: DNR/DNI:Do Not Resuscitate/Intubate Attending Statement I saw, examined, and evaluated this very complex and ill patient with Dr. Jose Elias Lazo on 05/27/2016 and agree with the note as above along with my edits. Patient's rhythm converted from atrial fibrillation to sinus today morning. I agree with hospice referral and defer further management to outpatient cardiology. JOSE ELIAS LAZO DO May 27, 2016 09:53 Harvey Wise MD May 27, 2016 13:17
--- NOTE | 2016-05-27 16:06 | PCM.PNMED ---
Subjective Date of Service May 27, 2016 Subjective Mr. Alban Monique is a pleasant 81-year-old male with history of A. fib with RVR, diabetes mellitus type II on NovoLog and Lantus, coronary artery disease status post CABG, hypertension, hyperlipidemia, renal insufficiency, and pulmonary fibrosis who presented for direct admit to [facility] as direct transfer from [facility] with complaint of one-week history of falling, denied hitting head generalized weakness, and instability. He has a DVT in his left leg that was found 4 days ago (Sunday of this week). Today is hospital day 2. Today, Mr. Monique does not have any fever, chills, chest pain, palpitations, or worsening shortness of breath from his baseline. His left leg does not hurt. He states that originally his left knee started to ache, then his left calf started to hurt, and then his left ankle started to hurt on Sunday, but it feels much better now. He has been in normal sinus rhythm since 5:30 this morning. Exam Vital Signs Vital Sign - Last Date Time Temp Pulse Resp B/P Pulse Ox O2 Delivery O2 Flow Rate FiO2 05/27/16 05:06 100 05/27/16 04:51 Supplement Oxygen 05/27/16 04:44 36.3 21 99/71 99 4.00 Intake and Output 05/26/16 05/26/16 05/27/16 Cumulative From/Thru 15:00 23:00 07:00 05/25/16 21:47 - 05/27/16 06:25 Intake Total 240 ml 300 ml 856 ml Output Total 900 ml 550 ml 2000 ml Balance -660 ml -250 ml -1144 ml Intake Oral 300 ml 500 ml IV Total 240 ml 356 ml Output Urine Total 900 ml 550 ml 2000 ml # Voids 1 1 Exam General: Alert and oriented 3, resting comfortably in bed, speaking in full sentences, in no acute distress. He is coloring peacefully. HEENT: NC/atraumatic, PERRLA, EOMI, neck, supple, no rigidity, no masses, no adenopathy, no JVD, throat no erythema Lungs: Bilateral lung crackles at the bases, no respiratory distress Heart: Regular rate and rhythm, no murmur Abdomen: Obese, bowel sounds hypoactive, soft, nontender, no organomegaly detected Genitourinary: No suprapubic pain Extremities: Left lower extremity with mild swelling compared to the right lower extremity, pulses are symmetric upper/lower. Non-tender bilateral lower extremities. Neurologic: Patient is neurologically intact, speaking full sentences, cranial nerves grossly intact bilaterally Skin: Skin appeared ecchymotic with large bruise on upper left extremity with IVs access bilaterally and upper extremity antecubital fossa appeared to be losing my mild amount of blood, skin was dry and cool to touch. Psychiatric: Patient's mood and affect were congruent, patient seemed cheerful IVs and Medications Medications Reviewed: Medications were reviewed in detail Lab and Diagnostics Result Diagram: 05/27/1645605/27/16456 X-Rays, CTs and MRIs Chest x-ray low lung volumes, cardiomegaly, nonspecific reticular opacity mid to low lung monterroso similar to what was seen on prior exam. 12-lead ECG Twelve-lead EKG from [facility] showed A. fib with RVR and aberrancy rate was 125 Cardiac Echo Impressions Echocardiogram Report Interpretation Summary The left ventricle is mildly dilated. The ejection fraction is estimated to be 15-20%. Compared to the prior exam, the left ventricular function is reduced (In 07/2011 it was 30 to 35%). Except base to mid posterolateral and base to mid lateral wall, rest of the LV segments are akinetic with flattened and dyskinetic septum. Compared to the prior exam, the inferior wall motion abnormality has increased in severity. The right ventricle is moderately dilated. Right ventricular systolic function is moderately reduced. This is decreased compared to the previous study. In RV long axis view, an echogenic, thick linear shadows seen with possibility of pacemaker leads. Correlate clinically. There is mild to moderate tricuspid regurgitation. Compared to the prior echo exam, there has been an increase in TR severity. The right ventricular systolic pressure is estimated at 28 mmHg assuming a right atrial pressure of 3 mm Hg. The patient was in atrial flutter with heart rates between 85-100 bpm during the exam (New). Reading Physician: PM Additional Diagnostics PROCEDURE: US VENOUS LEG DUPLEX BILATERAL IMPRESSION: Extensive DVT on the left, no DVT found on the right. Approved by: Nathan Kelly M.D. on 05/26/2016 at 13:50 Assessment & Plan Alban is a pleasant 81-year-old male with history of A. fib with RVR, diabetes mellitus type II on NovoLog and Lantus, coronary artery disease status post CABG , hypertension, hyperlipidemia, renal insufficiency, and pulmonary fibrosis who presented for direct admit to [facility] as direct transfer from [facility] with complaint of one-week history of falling, denied hitting head, generalized weakness, and instability. Today is hospital day 2. 1. Atrial fibrillation with rapid ventricular rate and aberrancy, present on admission, improved. 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 Their time and recommendations are appreciated. - Amiodarone drip discontinued and started on amiodarone 400 mg once per day for 5 days total - Also started on carvedilol 3.125 mg twice per day for now - Continue on apixaban 2.Generalized weakness, present on admission, active - This is likely due to patient's atrial fibrillation, lower extremity deep vein thrombosis, and congestive heart failure. Electrolyte imbalance at [facility], which has now resolved, likely contributed to his weakness - It does not appear that patient was syncopal at any time, however as described by patient's daughter he has been experiencing weakness and has been falling over the past week. Patient and daughter deny that he never hit his head. 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 - His family is interested in home health and hospice. 3. Chronic systolic congestive heart failure, present on admission. stable. - Echocardiogram done here in 2011 showed reduced ejection fraction of 30-35% -Patient had a more recent echocardiogram done in 2013 in in [place] that reported an ejection fraction of 50% -Echocardiogram repeated today and showed an ejection fraction of 15-20% -Cardiology consulted and following. Their time and recommendations are appreciated -Cardiology recommends adding an ACEI if patient's blood pressure can tolerate it 4. Left lower extremity deep vein thrombosis, present on admission, active - Confirmed by an ultrasound performed here - Patient was diagnosed this Sunday (4 days ago) with left lower extremity deep vein thrombosis and placed on Xarelto dose unknown -Started on [id number] twice per day for 7 days on 05/26/16 for deep vein thrombosis treatment and then 5mg twice per day after that 5. Hyperglycemia, present on admission, active - Bedside glucose 268 and lab glucose 332 - He is a known type II diabetic on Lantus and NovoLog - Continue medium dose correctional scale insulin and to monitor his blood sugar levels 6. Chronic respiratory failure secondary to pulmonary fibrosis, present on admission, stable. -Patient reports chronic 4 liters of oxygen use at home -Continue oxygen by nasal cannula at 4 liters 7. Hyponatremia, present on admission, resolved - Sodium 132 at [facility] but 136 today - We will continue to monitor 8. Hypokalemia, present on admission, resolved - Potassium 2.8 at [facility] and was repleted with potassium. Now 3.8 today - We will continue to monitor Other chronic problems Obstructive sleep apnea Paroxysmal Atrial fibrillation Pulmonary fibrosis Renal insufficiency -creatinine 1.9 Congestive heart failure Malignant melanoma DJD of the hands Hyperlipidemia Hypertension Type II diabetes Depression Obesity Asthma BPH Gout Coronary artery disease status post coronary artery bypass graft 2 vessels Cervical spine fracture Acetaminophen for mild pain when necessary. Bowel regimen Senna and MiraLAX scheduled and PRN. Zofran when necessary for nausea and vomiting. CODE STATUS: DNR/DNI DVT prophylaxis apixaban Disposition:Admitted to in patient service with expected length of stay greater than 2 days, secondary to severity of presenting symptoms, treatment plan, complexity of clinical work up, and risk of adverse events. Likely patient will be discharged to home tomorrow with home health and outpatient hospice discussion with his family. VTE Prophylaxis: Other (patient takes Xarelto) Resuscitation Status: DNR/DNI:Do Not Resuscitate/Intubate Attending Statement The patient was seen and examined together with Dr. Padron on 05/27/2016 and I agree with the history, exam and plan as outlined in the note above. . Sarah Padron DO May 27, 2016 08:15 Tuan Leslie MD May 28, 2016 07:56
--- NOTE | 2016-05-27 16:48 | NUR ---
Evaluation completed. Please go to "Notes" then click on "Assessments and Notes" (bottom left corner of screen). Then select appropriate discipline tab on top of screen.
--- NOTE | 2016-05-27 19:19 | NUR ---
Activity/ ortho BP pt tolerated working with Physical Therapy today (see Physical Therapy's note). Pt tested positive for orthostatic BP, see BP's charted in vitals. Ongoing care.
[2016-05-28] VITALS (8 sets, daily range): BP systolic 112–143; BP diastolic 66–79; PULSE 54–75; RESP 18–24; O2SAT 97–100
[2016-05-28 04:21] LABS: BASOPHILS % (AUTO) 0.3 % (0-3); EOSINOPHILS % (AUTO) 3.9 % (0-5); Mean Corpuscular Volume 100.3 fL (81-100); NEUTROPHILS % (AUTO) 56.6 % (40-74); Platelet Count 124 bil/L (150-400)
--- NOTE | 2016-05-28 06:40 | NUR ---
Tele Pt remained in SR throughout night, mostly low to mid 50s, no c/o chest pain/SOB. Pt appeared to sleep comfortably between care interventions.
[2016-05-28] MEDS: Insulin LISPRO 300 Unit/3 mL Inj SUBQ SCH ×4 (09:05→22:15)
[2016-05-28] MEDS: Ascorbic Acid 500 mg Tablet PO SCH (09:06)
--- NOTE | 2016-05-28 13:16 | NUR ---
Social Work:Continued Discharge Planning: lithographic general worker spoke with patient's daughter and she is aware that PT is recommending SNF for the patient. Patient's daughter requested that the patient be referred to [facility]. SW faxed referral to both [facility] and [facility]. DAVIDE spoke with Mavis and she confirmed receiving the patient's clinical. SW will follow up with SNF tomorrow. Leeann Britt, LAITH, ACM
--- NOTE | 2016-05-28 15:38 | PCM.PNMED ---
Subjective Date of Service May 28, 2016 Subjective Overnight: Uneventful overnight. Normal sinus rhythm on telemetry Today: He has no complaints today, denies chest pain, shortness of breath, edema. He states he overall feels well. Exam Vital Signs Vital Sign - Last Date Time Temp Pulse Resp B/P Pulse Ox O2 Delivery O2 Flow Rate FiO2 05/28/16 12:07 36.5 55 20 112/74 100 Room Air 05/28/16 03:41 4.00 Intake and Output 05/27/16 05/27/16 05/28/16 Cumulative From/Thru 15:00 23:00 07:00 05/25/16 21:47 - 05/28/16 05:03 Intake Total 1106 ml 400 ml 2362 ml Output Total 700 ml 550 ml 3250 ml Balance 406 ml -150 ml -888 ml Intake Oral 1106 ml 400 ml 2006 ml IV Total 356 ml Output Urine Total 700 ml 550 ml 3250 ml # Voids 1 # Bowel Movements 0 0 Exam General: Alert and oriented 3, resting comfortably in bed, speaking in full sentences, in no acute distress. HEENT: NC/atraumatic, PERRLA, EOMI, neck, supple, no rigidity, no masses, no adenopathy, no JVD, throat no erythema Lungs: Bilateral lung crackles at the bases, no respiratory distress Heart: Regular rate and rhythm, no murmur Abdomen: Obese, bowel sounds hypoactive, soft, nontender, no organomegaly detected Genitourinary: No suprapubic pain Extremities: No lower extremity edema Neurologic: Patient is neurologically intact, speaking full sentences, cranial nerves grossly intact bilaterally Skin: Skin appeared ecchymotic with large bruise on upper left extremity with IVs access bilaterally Psychiatric: Patient's mood and affect were congruent, patient seemed cheerful Lab and Diagnostics Result Diagram: 05/28/1640205/28/16402 X-Rays, CTs and MRIs Chest x-ray low lung volumes, cardiomegaly, nonspecific reticular opacity mid to low lung monterroso similar to what was seen on prior exam. 12-lead ECG Twelve-lead EKG from [facility] showed A. fib with RVR and aberrancy rate was 125 Cardiac Echo Impressions Echocardiogram Report Interpretation Summary The left ventricle is mildly dilated. The ejection fraction is estimated to be 15-20%. Compared to the prior exam, the left ventricular function is reduced (In 07/2011 it was 30 to 35%). Except base to mid posterolateral and base to mid lateral wall, rest of the LV segments are akinetic with flattened and dyskinetic septum. Compared to the prior exam, the inferior wall motion abnormality has increased in severity. The right ventricle is moderately dilated. Right ventricular systolic function is moderately reduced. This is decreased compared to the previous study. In RV long axis view, an echogenic, thick linear shadows seen with possibility of pacemaker leads. Correlate clinically. There is mild to moderate tricuspid regurgitation. Compared to the prior echo exam, there has been an increase in TR severity. The right ventricular systolic pressure is estimated at 28 mmHg assuming a right atrial pressure of 3 mm Hg. The patient was in atrial flutter with heart rates between 85-100 bpm during the exam (New). Reading Physician: PM Additional Diagnostics PROCEDURE: US VENOUS LEG DUPLEX BILATERAL IMPRESSION: Extensive DVT on the left, no DVT found on the right. Approved by: Nathan Kelly M.D. on 05/26/2016 at 13:50 Assessment & Plan Alban is a pleasant 81-year-old male with history of A. fib with RVR, diabetes mellitus type II on NovoLog and Lantus, coronary artery disease status post CABG , hypertension, hyperlipidemia, renal insufficiency, and pulmonary fibrosis who presented for direct admit to [facility] as direct transfer from [facility] with complaint of one-week history of falling, denied hitting head, generalized weakness, and instability. Today is hospital day 2. 1. Atrial fibrillation with rapid ventricular rate and aberrancy, present on admission, improved. - Amiodarone 400mg daily X 5 days - EKG at [facility] showed afib with RVR, HR 125 - Troponin was negative at 0.04 at [facility] and was negative here - Cardiology consulted and following. Their time and recommendations are appreciated. - Carvedilol 3.125 mg BID - consider increasing this to 6.25 as outpatient - Apixaban 10mg bid X7 days for DVT treatment and then 5mg bid 2.Generalized weakness, present on admission, active. - This is likely due to patient's atrial fibrillation, lower extremity deep vein thrombosis, and congestive heart failure. Electrolyte imbalance at [facility] which has now resolved, likely contributed to his weakness - It does not appear that patient was syncopal at any time, however as described by patient's daughter he has been experiencing weakness and has been falling over the past week. Patient and daughter deny that he never hit his head. 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 - His family is interested in home health and hospice. 3. Chronic systolic congestive heart failure, present on admission. stable. - Echocardiogram done in 2013 in in [place] that reported an ejection fraction of 50%. ECHO done 05/27/2016 showed mildly dilated left ventricle with an EF of 15-20% reduced from 30-35% (07/2011), and increased inferior wall motion abnormality from prior exam. Increase in severity of tricuspid regurgitation. -Cardiology consulted and following. Their time and recommendations are appreciated -Cardiology recommends adding an ACEI if patient's blood pressure can tolerate it 4. Left lower extremity deep vein thrombosis, present on admission, active - Confirmed by an ultrasound performed here - Patient was diagnosed this Sunday (4 days ago) with left lower extremity deep vein thrombosis and placed on Xarelto dose unknown -Started on [id number] twice per day for 7 days on 05/26/16 for deep vein thrombosis treatment and then 5mg twice per day after that 5. Hyperglycemia, present on admission, active - Bedside glucose 268 and lab glucose 332 - He is a known type II diabetic on Lantus and NovoLog - Continue medium dose correctional scale insulin and to monitor his blood sugar levels 6. Chronic respiratory failure secondary to pulmonary fibrosis, present on admission, stable. -Patient reports chronic 4 liters of oxygen use at home -Continue oxygen by nasal cannula at 4 liters 7. Hyponatremia, present on admission, resolved 8. Hypokalemia, present on admission, resolved Other chronic problems Obstructive sleep apnea Paroxysmal Atrial fibrillation Pulmonary fibrosis Renal insufficiency -creatinine 1.9 Congestive heart failure Malignant melanoma DJD of the hands Hyperlipidemia Hypertension Type II diabetes Depression Obesity Asthma BPH Gout Coronary artery disease status post coronary artery bypass graft 2 vessels Cervical spine fracture Acetaminophen for mild pain when necessary. Bowel regimen Senna and MiraLAX scheduled and PRN. Zofran when necessary for nausea and vomiting. CODE STATUS: DNR/DNI DVT prophylaxis apixaban Disposition: PT recommends SNF - awaiting placement at this time. VTE Prophylaxis: Other (patient takes Xarelto) Resuscitation Status: DNR/DNI:Do Not Resuscitate/Intubate Attending Statement The patient was seen and examined together with Dr. Zuleta on 05/28/2016 and I agree with the history, exam and plan as outlined in the note above. . Josh Zuleta May 28, 2016 15:38 Tuan Leslie MD Jun 02, 2016 17:37
--- NOTE | 2016-05-28 16:33 | NUR ---
Social Work-initial assessment: Data & Assessment: EMR Reviewed. See initial assessment. Pt is a 81 y/o male who was admitted on 05/25/16 for left proximal tibia fracture per H&P. Pt's insurance is [employer] PCP is Roberth Duke MD. Pt's readmission score is 3-high risk. SW met with patient to complete initial assessment, discuss discharge planning and Social Work role explained. Pt is alert and oriented x3. Patient resides in a single level home with one step to enter with his daughter. Pt has a walker, wheel-chair and O2. Patient receives O2 from [employer]. Patient does not drive. Pt has no HH or SNF history. Pt has completed DPOA/ advanced directive and social sciences professor requested a copy. Patient states that his daughter Beverly Joyner is his DPOA. Pt has no superintendent terminal care or VA benefits. Patient's daughter has been assisting him at home. Patient requested that the aboriginal education worker coordinator call his daughter to discuss discharge planning needs. aboriginal education worker coordinator spoke with patients daughter,Beverly Joyner [phone], and she requested that patient be referred to [facility] SNF. SW faxed patients clinical to [facility]. SW provided phone number and plan on white board in room. SW will continue to follow. Plan: Pt to likely discharge to SNF. Patient referred to [facility]. Pt's family is supportive. SW will continue to follow. Nile Britt LMSW, DOMINIC Addendum: 05/28/16 at 1642 by NILE MCCOY Amended: Links added.
--- NOTE | 2016-05-28 18:26 | NUR ---
Shift Note/activity/O2 Pt denies chest pain. Tele SBrady mid 50s. Pt up with SBA to transfer to Bathroom. Tolerating activity well. Educated pt on using his home pulse ox to monitor his oxygen requirements. Pt states that he is on 4L at baseline at home. His has O2 sats have been at 100% on 4L during this shift. O2 was decreased to 3L, will continue to monitor.
[2016-05-29] VITALS (10 sets, daily range): BP systolic 102–121; BP diastolic 60–78; PULSE 54–125; RESP 16–20; O2SAT 96–98
[2016-05-29 04:57] LABS: BASOPHILS % (AUTO) 0.2 % (0-3); EOSINOPHILS % (AUTO) 2.9 % (0-5); MONOCYTES % (AUTO) 13.4 % (4-12); Mean Corpuscular Volume 101.4 fL (81-100); NEUTROPHILS % (AUTO) 64.5 % (40-74); Platelet Count 121 bil/L (150-400)
--- NOTE | 2016-05-29 07:20 | NUR ---
Restful Night Pt slept and appeared comfortable between care interventions. Denied any pain all night, up to BR w/ FWW and SBA, w/ help getting up from bed. Tele SBrady 50s.
[2016-05-29] MEDS: Insulin LISPRO 300 Unit/3 mL Inj SUBQ SCH ×4 (08:55→20:47)
[2016-05-29] MEDS: Ascorbic Acid 500 mg Tablet PO SCH (08:56)
[2016-05-29] MEDS ORDERED: CARV3.122 PO (10:46)
[2016-05-29] MEDS ORDERED: AMIO200T PO (10:46)
[2016-05-29] MEDS ORDERED: APIX5TAB PO ×2 (10:46)
--- NOTE | 2016-05-29 10:57 | PCM.DIMED ---
Sarah Padron DO 05/29/16 1057: Discharge Instructions Date of Service May 29, 2016 Dates of Hospitalization May 25, 2016 at 21:34 Discharge Diagnosis Discharge Diagnosis 1. Atrial fibrillation with rapid ventricular rate and aberrancy 2.Generalized weakness 3. Chronic systolic congestive heart failure 4. Left lower extremity deep vein thrombosis 5. Hyperglycemia 6. Chronic respiratory failure secondary to pulmonary fibrosis 7. Hyponatremia, resolved 8. Hypokalemia, resolved Diet Heart Healthy, Diabetic Activity Limited until seen by PCP Call your provider Fever or Chills, Bleeding, Chest pain, Excessive diarrhea, Weakness (unilateral) Patient Instructions You are being sent home with home health services. For your heart, continue furosemide at 20 mg once daily.Start metoprolol succinate 50 mg once daily and potassium chloride 10 mEq once daily. Stop metolazone. We need to continue to monitor your kidney function and blood pressure. Please make sure to follow up with Dr. Duke in the next 7-10 days to monitor your basic metabolic panel. If your kidney function and blood pressure allow, you may be re-started on lisinopril 5 mg once daily by your clinical psychiatrist. For the blood clot in your leg, continue apixaban 10 mg by mouth twice per day for 7 days and then 5 mg twice per day there after. The 10 mg twice per day was started on 05/26/2016 and you received one dose today. You need to take one dose of apixaban 10 mg this evening. You need to continue 10 mg twice per day until 06/01/2016. On 06/02/2016, you start 5 mg by mouth twice per day there after until re-evaluated by your primary care provider. Continue an aspirin 81 mg once daily. Continue your insulin as prescribed. Continue to modify your diet for better blood glucose control. The Diabetes Solution by Dr. Bowman is a book that is a good resource about diet changes to help control your diabetes better. Continue oxygen at 4 liters as previously used. Follow up with your primary care provider Dr. Duke in 1 week. Follow up with your clinical psychiatrist in 1-2 weeks. Follow-up Provider: Roberth Duke MD Follow-up with PCP in: 1 week Provider: Ladarius Graf MD Follow-up in: 1 week Tuan Leslie MD 05/31/16 0950: Discharge Instructions Attending's Statement The patient was seen and examined together with Dr. Padron on 05/29/2016 and I agree with the history, exam and plan as outlined in the note above. Patient was actually discharged on 05/30/2016. No clinical changes over the interval. . Sarah Padron DO May 29, 2016 10:57 Tuan Leslie MD May 31, 2016 09:50
--- NOTE | 2016-05-29 11:37 | NUR ---
Social Work Note: Discharge Data& Assessment: Per pt is medically improved and ready to discharge home via POV. Per PT, pt walked 120ft and does not meet criteria for SNF any longer. PT is recommending home with Home Health services. Pt provided with Home Health list. SW spoke with pt at bedside regarding is progression and going home with Home Health services. SW spoke with pt daughter as well regarding change in discharge plan. Pt daughter is agreeable to discharge plan, SW notified her of Home Health list for preferences. Pt daughter is also requesting OFFICE EMPLOYEE for safe bathing and RN for vitals. SW provided referral to [facility] Neftali and confirmed they go out to [place] and contract with pt insurance. F2F signed and faxed to [facility] office. DAVIDE confirmed pt is on home 06/11 at baseline. DAVIDE notified multimedia coordinator at [facility] that pt no longer meets criteria for SNF.Pt daughter is able to transport pt home this afternoon. notified of change in ambulation with PT and agreeable to DC plan. All updated and agreeable to plan. Plan: Per pt is medically ready to discharge home via POV with [facility], RN and OFFICE EMPLOYEE to follow up with pt and begin services this Sunday05/31/2016.Pt daughter is able to transport pt home this afternoon. notified of change in ambulation with PT and agreeable to DC plan. All updated and agreeable to plan. JÚNIOR Langley
[2016-05-29] MEDS: MeTOProlol XL 25 mg ER24 Tablet PO SCH (15:57)
--- NOTE | 2016-05-29 18:46 | NUR ---
Cardiac Afib/flutter conversion Approximately 1100 [facility] notified this RN that pt had converted back into afib/aflutter. Pt was in process of discharging home. notified. HR 100-120. After cardiology consult, 25mg metoprolol ER was ordered and administered. Pt HR trending down to 80s.
--- NOTE | 2016-05-29 19:02 | PROG NOTE ---
[address] [address] PROGRESS NOTE PATIENT: MIKHAIL DUMONT : 1935 MR#: [id number] ADMIT: 05/25/2016 JOB ID: [id number] DATE: 05/29/2016 FOLLOWUP NOTE: I was asked to see the patient by the hospitalist team, who had planned to discharge him earlier today, but because of recurrent atrial fibrillation with moderately rapid ventricular response, his discharge was canceled and I was asked to follow up with his care. He was previously seen by Dr. Wise. This 81-year-old gentleman has a history remotely of coronary artery bypass graft surgery. It is my assumption that he presented with an anterior myocardial infarction previously, may have ended up with a stent, and then ultimately with coronary bypass graft surgery, probably more than 15 years ago. This was done down in [place] and he tells me that only a couple of days after discharge, he coughed and split open his sternal incision, requiring repeat attempted sternotomy and subsequently has had a nonhealed sternum long-term. Over the last year, he has been followed by Dr. Graf in the [place] office, and prior to that, he had not seen a shallot packer for some time. He has a history of diabetes and mild chronic renal insufficiency and presumably moderate chronic left ventricular systolic dysfunction related to his prior anterior infarct. He had been on low-dose furosemide medication, and some months ago, was given a prescription for metolazone 5 mg to take on an as-needed basis. It is not entirely clear to me how often this gentleman took the metolazone, but it does appear that from his presentation three days ago that he has had symptomatic orthostatic lightheadedness associated with moderate prerenal azotemia and significant hypokalemia, clearly related to his diuretic therapy, contributing to several episodes of recurrent near-syncope. A week ago, he was started up on Xarelto for the discovery of fairly extensive left lower extremity deep venous thrombosis. O2 saturations have been normal and a pulmonary emboli CT scan was not performed because of his renal insufficiency. The patient today states that he is feeling fairly well. He has no awareness of his recurrent atrial fibrillation. He is wearing oxygen and states that he has chronically worn oxygen since his diagnosis of interstitial pulmonary fibrosis. He lives at home and his daughter moved in after his and provides his care. He is able to ambulate with the aid of a walker from room to room in the house, but otherwise has no other physical activities. Over the course of the last several weeks, he has fallen several times, and on one occasion, apparently laid on the kitchen floor for 30-60 minutes until he was discovered by his daughter, who had returned home from work. The timing of these events is not adequate for me to be confident that was the etiology for his deep venous thrombosis, though I suspect that during one of his falls, he may have had enough trauma to account for his DVT. He has several areas of ecchymoses from previous falls as well and states that he hit his head and, in fact, went to the emergency department for a CT scan sometime in the past month as well. Subsequent to his hospitalization, he was put on amiodarone which was started in the emergency department at [facility] prior to his transfer here. Amiodarone was continued at a dose of 400 mg twice daily and he was, in fact, in normal sinus rhythm with rates in the mid 50s up until this morning when he again developed rapid atrial fibrillation PHYSICAL EXAMINATION: This gentleman is a moderately disheveled, pleasant, obese, 81-year-old male wearing oxygen. Jugular venous pressure is not obviously elevated, but patient examined in the chair. He has prominent Velcro rales involving the lower two-thirds of both lungs, consistent with his history of pulmonary fibrosis. I do not see any acrocyanosis or clubbing. 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 His cardiac auscultation is notable for a moderately rapid irregular rhythm without obvious significant murmur. Abdomen is obese. He has bilateral venectomy scars with mild pretibial and pedal edema, left greater than right. LABORATORY DATA: Shows creatinine 1.68, with a BUN of 47. He has a corrected hypokalemic metabolic alkalosis. His blood sugars have been ranging in the mid 200s. Interestingly, his BNP on admission was elevated at 1800 despite evidence suggesting that he was dehydrated. Chest x-ray shows moderate cardiomegaly and prominent interstitial infiltrates throughout both lung monterroso. This is on a CD from [facility]. His echocardiogram I personally reviewed and I think that the ejection fraction probably is in the range of 30% to 35%. There is evidence of mid and distal septal and apical and mid and distal anterior wall akinesis. In addition, the distal aspect of his anterior RV wall is akinetic. Pulmonary artery pressures are surprisingly normal given his interstitial pulmonary fibrosis, and it appears that his inferior vena cava is small, collapsing readily with inspiration, suggesting a low central venous pressure. IMPRESSION: This gentleman has recurrent atrial fibrillation with moderately rapid heart rate despite amiodarone therapy. I think that it is likely that his left ventricular systolic dysfunction is chronic and may not be significantly changed, with electrocardiogram evidence and echocardiographic evidence of a previous anterior myocardial infarction. At this point, I think with his underlying conditions, maintaining normal sinus rhythm is likely going to be a challenge. I think I would prefer stopping amiodarone at this point in time. I would change to metoprolol succinate which he probably will tolerate better from a blood pressure standpoint, starting at 25 mg twice daily and increasing if necessary and as tolerated. I would discontinue metolazone and instead continue his daily furosemide, which appears to be 20 mg daily. He should also go home on 8-10 mEq of potassium daily to avoid recurrent hypokalemia. It would be interesting to review his most recent echocardiogram report for a description of his regional wall motion abnormalities, though everything would suggest that his anterior infarction is old. Finally, I do not see any reason that he should not be on a low-dose KARYN inhibitor. Unless he has significant renal artery stenosis, he should be able to tolerate it well, and it will be helpful from the standpoint of his left ventricular systolic dysfunction as well as his diabetic nephropathy. I will follow up with this gentleman's clinical course tomorrow to make further recommendations as necessary. (A total of 60 minutes was spent in reviewing this patient's records, clinical history, and examination, and formulating these recommendations.)
--- NOTE | 2016-05-29 19:43 | PCM.PNMED ---
Subjective Date of Service May 29, 2016 Subjective Mr. Alban Monique is a pleasant 81-year-old male with history of A. fib with RVR, diabetes mellitus type II on NovoLog and Lantus, coronary artery disease status post CABG, hypertension, hyperlipidemia, renal insufficiency, and pulmonary fibrosis who presented for direct admit to [facility] as direct transfer from [facility] with complaint of one-week history of falling, denied hitting head generalized weakness, and instability. He has a DVT in his left leg that was found 4 days ago (Sunday of this week). Today, Mr. Monique does not have any chest pain, palpitations, or worsening shortness of breath. He continues to feel back at his baseline. He does not have an issues with bladder or bowels. He returned to atrial fibrillation with RVR upon being discharged this morning. Exam Vital Signs Vital Sign - Last Date Time Temp Pulse Resp B/P Pulse Ox O2 Delivery O2 Flow Rate FiO2 05/29/16 17:05 Supplement Oxygen 05/29/16 16:25 36.9 85 18 112/78 98 2.00 Intake and Output 05/28/16 05/28/16 05/29/16 Cumulative From/Thru 15:00 23:00 07:00 05/25/16 21:47 - 05/29/16 06:15 Intake Total 936 ml 600 ml 3898 ml Output Total 800 ml 1050 ml 5100 ml Balance 136 ml -450 ml -1202 ml Intake Oral 936 ml 600 ml 3542 ml IV Total 356 ml Output Urine Total 800 ml 1050 ml 5100 ml # Voids 1 5 7 # Bowel Movements 1 2 3 Exam General: Alert and oriented 3, resting comfortably in bed, speaking in full sentences, in no acute distress. HEENT: NC/atraumatic, PERRLA, EOMI, neck, supple, no rigidity, no masses, no adenopathy, no JVD, throat no erythema Lungs: Bilateral lung crackles at the bases, no respiratory distress Heart: Regular rate and rhythm, no murmur Abdomen: Obese, bowel sounds hypoactive, soft, nontender, no organomegaly detected Genitourinary: No suprapubic pain Extremities: No lower extremity edema Neurologic: Patient is neurologically intact, speaking full sentences, cranial nerves grossly intact bilaterally Skin: Skin appeared ecchymotic with large bruise on upper left extremity with IVs access bilaterally Psychiatric: Patient's mood and affect were congruent. IVs and Medications Medications Reviewed: Medications were reviewed in detail Lab and Diagnostics Result Diagram: 05/29/1644905/29/16449 X-Rays, CTs and MRIs Chest x-ray low lung volumes, cardiomegaly, nonspecific reticular opacity mid to low lung monterroso similar to what was seen on prior exam. 12-lead ECG Twelve-lead EKG from [facility] showed A. fib with RVR and aberrancy rate was 125 Cardiac Echo Impressions Echocardiogram Report Interpretation Summary The left ventricle is mildly dilated. The ejection fraction is estimated to be 15-20%. Compared to the prior exam, the left ventricular function is reduced (In 07/2011 it was 30 to 35%). Except base to mid posterolateral and base to mid lateral wall, rest of the LV segments are akinetic with flattened and dyskinetic septum. Compared to the prior exam, the inferior wall motion abnormality has increased in severity. The right ventricle is moderately dilated. Right ventricular systolic function is moderately reduced. This is decreased compared to the previous study. In RV long axis view, an echogenic, thick linear shadows seen with possibility of pacemaker leads. Correlate clinically. There is mild to moderate tricuspid regurgitation. Compared to the prior echo exam, there has been an increase in TR severity. The right ventricular systolic pressure is estimated at 28 mmHg assuming a right atrial pressure of 3 mm Hg. The patient was in atrial flutter with heart rates between 85-100 bpm during the exam (New). Reading Physician: PM Additional Diagnostics PROCEDURE: US VENOUS LEG DUPLEX BILATERAL IMPRESSION: Extensive DVT on the left, no DVT found on the right. Approved by: Nathan Kelly M.D. on 05/26/2016 at 13:50 Assessment & Plan Alban is a pleasant 81-year-old male with history of A. fib with RVR, diabetes mellitus type II on NovoLog and Lantus, coronary artery disease status post CABG , hypertension, hyperlipidemia, renal insufficiency, and pulmonary fibrosis who presented for direct admit to [facility] as direct transfer from [facility] with complaint of one-week history of falling, denied hitting head, generalized weakness, and instability. Today is hospital day 2. 1. Atrial fibrillation with rapid ventricular rate and aberrancy, present on admission, improved. - Amiodarone 400mg daily X 5 days - EKG at [facility] showed afib with RVR, HR 125 - Troponin was negative at 0.04 at [facility] and was negative here - Cardiology consulted and following. Their time and recommendations are appreciated. - Discontinued carvedilol and amiodarone - Started metoprolol succinate 25 mg BID 2.Generalized weakness, present on admission, active. - This is likely due to patient's atrial fibrillation, lower extremity deep vein thrombosis, and congestive heart failure. Electrolyte imbalance at [facility], which has now resolved, likely contributed to his weakness - It does not appear that patient was syncopal at any time, however as described by patient's daughter he has been experiencing weakness and has been falling over the past week. Patient and daughter deny that he ever hit his head. 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 Chronic systolic congestive heart failure, present on admission. stable. - Echocardiogram done in 2013 in in [place] that reported an ejection fraction of 50%. ECHO done 05/27/2016 showed mildly dilated left ventricle with an EF of 15-20% reduced from 30-35% (07/2011), and increased inferior wall motion abnormality from prior exam. Increase in severity of tricuspid regurgitation. -Cardiology consulted and following. Their time and recommendations are appreciated -Cardiology recommends adding an ACEI if patient's blood pressure and kidney function can tolerate it as an outpatient. -Continue furosemide 20 mg daily and start potassium chloride 10mEq once daily for patient as an outpatient -Discontinue metolazone 4. Left lower extremity deep vein thrombosis, present on admission, active - Confirmed by an ultrasound performed here - Patient was diagnosed this Sunday (4 days ago) with left lower extremity deep vein thrombosis and placed on Xarelto dose unknown -Started on [id number] twice per day for 7 days on 05/26/16 for deep vein thrombosis treatment and then 5mg twice per day after that -Discussed fall risk with patient and patient's family 5. Hyperglycemia, present on admission, active - Bedside glucose 268 and lab glucose 332 - He is a known type II diabetic on Lantus and NovoLog - Continue medium dose correctional scale insulin and to monitor his blood sugar levels 6. Chronic respiratory failure secondary to pulmonary fibrosis, present on admission, stable. -Patient reports chronic 4 liters of oxygen use at home -Continue oxygen by nasal cannula at 4 liters 7. Chronic renal insufficiency, present on admission. Active. -BUN 47, creatinine 1.68 today -Hold ACEI for now 8. Hyponatremia, present on admission, resolved 9. Hypokalemia, present on admission, resolved Other chronic problems Obstructive sleep apnea Paroxysmal Atrial fibrillation Pulmonary fibrosis Renal insufficiency -creatinine 1.9 Congestive heart failure Malignant melanoma DJD of the hands Hyperlipidemia Hypertension Type II diabetes Depression Obesity Asthma BPH Gout Coronary artery disease status post coronary artery bypass graft 2 vessels Cervical spine fracture Acetaminophen for mild pain when necessary. Bowel regimen Senna and MiraLAX scheduled and PRN. Zofran when necessary for nausea and vomiting. CODE STATUS: DNR/DNI DVT prophylaxis apixaban Disposition: Patient to go home with home health including physical therapy tomorrow if he remains rate controlled.. Pain Evaluation: Adequate Pain Control VTE Prophylaxis: Other (patient takes Xarelto) Resuscitation Status: DNR/DNI:Do Not Resuscitate/Intubate Attending Statement The patient was seen and examined together with Dr. Padron on 05/29/2016 and I agree with the history, exam and plan as outlined in the note above. . Sarah Padron DO May 29, 2016 18:36 Tuan Leslie MD May 31, 2016 09:51
[2016-05-30 03:07] VITALS: BP 109/70; PULSE 72; RESP 18; O2SAT 97
--- NOTE | 2016-05-30 04:21 | NUR ---
Tele: Tele Remains Afib 90s overnight. Pt denies any chest pain or discomfort. Vitals stable, Pt denies any pain. Sleeping comfortably. Care ongoing.
[2016-05-30 04:25] LABS: BASOPHILS % (AUTO) 0.3 % (0-3); EOSINOPHILS % (AUTO) 3.3 % (0-5); MONOCYTES % (AUTO) 15.6 % (4-12); Mean Corpuscular Hemoglobin 33.9 pg (27.0-35.0); Mean Corpuscular Volume 101.6 fL (81-100); NEUTROPHILS % (AUTO) 59.6 % (40-74); Platelet Count 122 bil/L (150-400)
[2016-05-30 08:42] VITALS: BP 106/66; PULSE 87; RESP 22; O2SAT 98
[2016-05-30] MEDS: Ascorbic Acid 500 mg Tablet PO SCH (08:48)
[2016-05-30] MEDS: MeTOProlol XL 25 mg ER24 Tablet PO SCH (08:48)
[2016-05-30] MEDS: Insulin LISPRO 300 Unit/3 mL Inj SUBQ SCH ×2 (08:51→12:43)
--- NOTE | 2016-05-30 10:37 | PROG NOTE ---
[address] [address] PROGRESS NOTE PATIENT: MIKHAIL DUMONT : 1935 MR#: [id number] ADMIT: 05/25/2016 JOB ID: [id number] DATE: 05/30/2016 SUBJECTIVE: The patient feels well today and is anxious to go home. Telemetry demonstrates a nice gradual reduction in his atrial fibrillation rate to the mid 80s today. He is unaware of his atrial fibrillation and is tolerating metoprolol without any difficulty. His laboratory today shows an increase in creatinine to 1.9 with a potassium of 4.5. ASSESSMENT AND PLAN: I think it is reasonable for this gentleman to be discharged to the care of his daughter at home with home healthcare as well. I would be reluctant to initiate KARYN inhibitor on the day of discharge and would recommend that the discharge summary indicate that initiation of an KARYN inhibitor was discussed and should be considered as an outpatient when and if appropriate. He should be discharged on 50 mg of metoprolol succinate daily in addition to 20 mg of furosemide daily and 10 mEq of potassium daily. He should have a basic metabolic panel done within a week or so and follow up with Dr. Duke and Dr. Leary within the next week or two. He also needs to understand that if he is discharged home on Eliquis that the medication be reduced from 10 mg b.i.d. to 5 mg b.i.d. after he has been on it for 1 week. I remained a bit concerned about his falling risks on anticoagulation, but clearly with his DVT anticoagulant therapy is important and the benefits probably outweigh the risks.
[2016-05-30] MEDS ORDERED: METO-272 PO (10:40)
[2016-05-30] MEDS ORDERED: POTA8CAP10 PO (10:40)
[2016-05-30] MEDS ORDERED: FUR20 PO (10:40)
[2016-05-30] MEDS ORDERED: APIX5TAB PO (10:40)
[2016-05-30] MEDS ORDERED: POTA10TA38 PO (10:45)
[2016-05-30 11:05] VITALS: PULSE 86
[2016-05-30 11:51] VITALS: BP 108/68; PULSE 92; RESP 20; O2SAT 99
--- NOTE | 2016-05-30 15:30 | NUR ---
Social Work Note: Discharge Data& Assessment: Per pt is medically ready for discharge. Pt is a 81 year old male admitted on 05/25/2016 for syncope and tachycardia. Per pt is medically improved and ready for discharge. Pt was originally ready for discharge yesterday 05/29/2016, however, pt began to go into AFIB and was unsafe for discharge yesterday. Per pt has medically improved and ready for discharge this afternoon. notified [facility] of pt discharge to begin services in 2-3 days. Pt daughter transported pt home. Pt and pt family deny any other needs at this time. No other discharge needs identified. Plan: Per pt is medically improved and ready to discharge home via POV with [facility] PT, RN and MAINTENANCE MECHANIC MILLWRIGHT to follow. Pt and pt family deny any other needs at this time. No other discharge needs identified. All updated and agreeable to plan. JÚNIOR Langley
--- NOTE | 2016-05-30 16:14 | NUR ---
Discharge Pt discharged to home with transportation by his daughter. Pt IV's dc'd intact, telemetry removed and vtc technician notified. Discharge instructions, follow up appointments and medications were reviewed with patient and his daughter who is his caregiver. All questions were answered and understanding was voiced. Pt's belongings were gathered to be sent home with him. Pt was escorted off unit by PORTABLE SAWYER to his daughters POV.
--- NOTE | 2016-05-31 22:30 | PCM.DC.MED ---
Discharge Summary Date of Service May 29, 2016 Dates of Hospitalization Date of Hospital Admission May 25, 2016 at 21:34 Date of Discharge: May 30, 2016 Providers: Admitting Physician: Alvarado Villanueva MD Primary Care Physician: Roberth Duke MD Attending Physician: Alvarado Villanueva MD Diagnosis at Time of Discharge Diagnosis at Time of Discharge 1. Atrial fibrillation with rapid ventricular rate and aberrancy 2.Generalized weakness 3. Chronic systolic congestive heart failure 4. Left lower extremity deep vein thrombosis 5. Hyperglycemia 6. Chronic respiratory failure secondary to pulmonary fibrosis 7. Hyponatremia, resolved 8. Hypokalemia, resolved Procedures XRay, CTs & MRIs Chest x-ray low lung volumes, cardiomegaly, nonspecific reticular opacity mid to low lung monterroso similar to what was seen on prior exam. ECG 12 Lead Twelve-lead EKG from [facility] showed A. fib with RVR and aberrancy rate was 125 Cardiac Echo Impression Echocardiogram Report Interpretation Summary The left ventricle is mildly dilated. The ejection fraction is estimated to be 15-20%. Compared to the prior exam, the left ventricular function is reduced (In 07/2011 it was 30 to 35%). Except base to mid posterolateral and base to mid lateral wall, rest of the LV segments are akinetic with flattened and dyskinetic septum. Compared to the prior exam, the inferior wall motion abnormality has increased in severity. The right ventricle is moderately dilated. Right ventricular systolic function is moderately reduced. This is decreased compared to the previous study. In RV long axis view, an echogenic, thick linear shadows seen with possibility of pacemaker leads. Correlate clinically. There is mild to moderate tricuspid regurgitation. Compared to the prior echo exam, there has been an increase in TR severity. The right ventricular systolic pressure is estimated at 28 mmHg assuming a right atrial pressure of 3 mm Hg. The patient was in atrial flutter with heart rates between 85-100 bpm during the exam (New). Reading Physician: PM Other Diagnostics PROCEDURE: US VENOUS LEG DUPLEX BILATERAL IMPRESSION: Extensive DVT on the left, no DVT found on the right. Approved by: Nathan Kelly M.D. on 05/26/2016 at 13:50 Brief History From the history and physical performed by Dr. Adrián Ring on 05/26/2016 : Alban is a pleasant 81-year-old male with history of A. fib with RVR, diabetes mellitus type II on NovoLog and Lantus, coronary artery disease status post CABG , hypertension, hyperlipidemia, renal insufficiency who presented for direct admit to [facility] as direct transfer from [facility] with complaint of one-week history of falling, denied hitting head generalized weakness, and instability. At [facility] patient was found to be hypokalemic at 2.8, and EKG showed patient was in A. fib / RVR with aberrancy. Patient's potassium was repleted. Troponin was negative. Chest x-ray showed low lung volumes and cardiomegaly, nonspecific reticular opacity in the mid to low lung similar to prior exam. Patient was negative for UTI and pneumonia. Last echo showed ejection fraction of 50%. Cardiology was consulted and recommended Amiodarone drip for A. fib with RVR, which was started at [facility] ED. However hospital did not have sufficient beds for admission and patient was transferred to [facility]. At [facility] his daughter Beverly who is the DPOA states she found patient in kitchen this morning at about 05 100 leaning up against the kitchen counter and appearing unsteady. She says that patient began to fall and she helped him slowly to the floor. She denies that patient hit his head. Of note patient was recently diagnosed this past Sunday with a left lower extremity DVT and placed on Xarelto. Patient describes multiple episodes of vomiting phlegm over the past 2-3 weeks. Patient denied fevers nausea vomiting, diarrhea, dysuria, sweats, abdominal pain, constipation, hematuria, hematochezia, hematemesis. Temperature 36.6, pulse 100, respiratory rate 24, blood pressure 115/80, 97% on 4 L nasal cannula. Fingerstick blood glucose [facility] [address] [facility] ED labs are as follows Hemogram : WBC's 10.6, hemoglobin 14.8, hematocrit 43.0, platelets 145, MCV 99.4 , neutrophils 7.2 high Chemistry panel sodium 132, potassium 2.8 (since repleted), chloride 83, CO2 34H , close to 68, BUN 50, creatinine 1.9, anion gap 15.0, lactic acid 2.1, troponin 0.04 (-), EKG showed rate of 125 and A. fib with RVR with Aberrancy. PT INR 17.0/1.5 Hospital Course Alban is a pleasant 81-year-old male with history of A. fib with RVR, diabetes mellitus type II on NovoLog and Lantus, coronary artery disease status post CABG , hypertension, hyperlipidemia, renal insufficiency, and pulmonary fibrosis who presented for direct admit to [facility] as direct transfer from [facility] with complaint of one-week history of falling, denied hitting head, generalized weakness, and instability. 1. Atrial fibrillation with rapid ventricular rate and aberrancy, present on admission, improved. - EKG at [facility] showed afib with RVR, HR 125 - Patient was on an amiodarone drip at [facility] and initially continued here before being discontinued - Troponin was negative at 0.04 at [facility] and was negative here - Cardiology consulted and following. Their time and recommendations were appreciated. - Discontinued carvedilol and amiodarone - Patient was rate controlled upon discharge - Started metoprolol succinate 25 mg BID and switched to metoprolol succinate 50 mg once daily as an outpatient. - Patient to continue home health nursing to monitor vital signs 2.Generalized weakness, present on admission, improved. - This was likely due to patient's atrial fibrillation, lower extremity deep vein thrombosis, and congestive heart failure. Electrolyte imbalance at [facility], which resolved, likely contributed to his weakness - It did not appear that patient was syncopal at any time, however as described by patient's daughter he had been experiencing weakness and had been falling over the past week. Patient and daughter deny that he ever hit his head. - Records from his ethylbenzene oxidizer revealed that he has a history of multiple falls , which was why he was discontinued on warfarin - Physical therapy started and pt was tolerating well - Patient to continue physical therapy at home for continued strengthening and mobility 3. Chronic systolic congestive heart failure, present on admission. stable. - Echocardiogram done in 2013 in in [place] that reported an ejection fraction of 50%. ECHO done on 05/27/2016 showed mildly dilated left ventricle with an EF of 15-20% reduced from 30-35% (07/2011), and increased inferior wall motion abnormality from prior exam. It also showed an increase in severity of tricuspid regurgitation. -Cardiology consulted and following. Their time and recommendations were appreciated -Cardiology recommended adding an ACEI if patient's blood pressure and kidney function can tolerate it as an outpatient. -Continued furosemide 20 mg daily and started potassium chloride 10mEq once daily for patient as an outpatient -Discontinued metolazone -Recommend further discussion with patient's regular ethylbenzene oxidizer as an outpatient for possible adjustments to medication regimen for atrial fibrillation, heart failure, and hypertension. 4. Left lower extremity deep vein thrombosis, present on admission, active - Confirmed by an ultrasound performed here - Patient was diagnosed on 05/22/16 with left lower extremity deep vein thrombosis and placed on Xarelto dose unknown - Started on [id number] mg twice per day for 7 days on 05/26/16 for deep vein thrombosis treatment and then 5mg twice per day after that as records regarding Xarelto were not received at that time. - Discussed fall risk with patient and patient's family 5. Hyperglycemia, present on admission, active - He is a known type II diabetic on Lantus and NovoLog - Continued medium dose correctional scale insulin in the hospital and monitored his blood sugar levels - HgbA1c was 8.6% and recommended further discussion of blood glucose control as an outpatient 6. Chronic respiratory failure secondary to pulmonary fibrosis, present on admission, stable. -Continued oxygen by nasal cannula at 4 liters 7. Chronic renal insufficiency, present on admission. Active. -BUN 48, creatinine 1.93 on day of discharge -Held KARYN inhibitor for now and recommend possible resuming of an KARYN inhibitor as an outpatient based on pt's kidney function and blood pressure 8. Hyponatremia, present on admission, resolved 9. Hypokalemia, present on admission, resolved -Pt started on 10 mEq of potassium chloride daily Exam Vital Signs (Last) Date Time Temp Pulse Resp B/P Pulse Ox O2 Delivery O2 Flow Rate FiO2 05/29/16 08:47 Supplement Oxygen 05/29/16 08:35 36.6 54 20 111/66 96 3.00 Exam General: Alert and oriented 3, resting comfortably in bed, speaking in full sentences, in no acute distress. HEENT: NC/atraumatic, PERRLA, EOMI, neck, supple, no rigidity, no masses, no adenopathy, no JVD, throat no erythema Lungs: Mild bilateral lung crackles at the bases, no respiratory distress Heart: Regular rate and rhythm, no murmur Abdomen: Obese, bowel sounds hypoactive, soft, nontender, no organomegaly detected Genitourinary: No suprapubic pain Extremities: No lower extremity edema Neurologic: Patient is neurologically intact, speaking full sentences, cranial nerves grossly intact bilaterally Skin: Skin appeared ecchymotic with large bruise on upper left extremity with IVs access bilaterally. Dry skin on bilateral feet. Psychiatric: Patient's mood and affect were congruent. Test 05/25/16 23:40 05/26/16 05:13 05/26/16 05:14 05/26/16 10:45 Hemoglobin A1c 8.6% (4.8-5.6) Magnesium Level 2.2mg/dL (1.6-2.6) Thyroid Stimulating Hormone (TSH) 3.080uIU/mL (0.450-4.500) Urine Color Yellow (YELLOW) Urine Appearance Clear (CLEAR,HAZY) Urine pH 6.0 (5.0-8.0) Urine Specific [place] 1.010 (1.003-1.035) Urine Protein Negativemg/dL (NEG,TRACE) Urine Glucose (UA) >1000mg/dL (NEGATIVE) Urine Ketones Negativemg/dL (NEGATIVE) Urine Occult Blood Negative (NEGATIVE) Urine Nitrite Negative (NEGATIVE) Urine Bilirubin Negative (NEGATIVE) Urine Urobilinogen Normalmg/dL (NORMAL) Urine Leukocyte Esterase Negative (NEGATIVE) Urine RBC 0-2/hpf (0-2) Urine WBC 0-5/hpf (0-5) Urine Epithelial Cells Occasional/hpf (NONE-MOD) Urine Crystals None seen (NONE SEEN) Urine Bacteria None/hpf (NONE-FEW) Urine Hyaline Casts None/lpf (NONE) Urine Granular Casts None seen (NONE SEEN) Urine Waxy Casts None seen (NONE SEEN) Urine Red Blood Cell Casts None seen (NONE SEEN) Urine White Blood Cell Casts None seen (NONE SEEN) Urine Mucus None seen (None Seen) Urine Trichomonas None seen (NONE SEEN) Urine Yeast None (NONE SEEN) Urinalysis Comment None Urine Culture Reflexed Not indicated Prothrombin Time 11.1sec (8.1-12.5) Prothromb Time International Ratio 1.04ratio Troponin T < 0.010ug/L (0.0-0.011) Pro-B-Type Natriuretic Peptide 1881pg/mL (0-486) Test 05/29/16 04:50 White Blood Count 10.3th/mm3 (3.8-10.1) Red Blood Count 3.68mil/mm3 (4.40-5.80) Hemoglobin 12.5g/dL (13.8-17.2) Hematocrit 37.3% (41.0-50.0) Mean Corpuscular Volume 101.4fL (81-100) Mean Corpuscular Hemoglobin 34.0pg (27.0-35.0) Mean Corpuscular Hemoglobin Concent 33.5% (32.0-37.0) Red Cell Distribution Width 15.8% (12.3-15.4) Platelet Count 121bil/L (150-400) Neutrophils (%) (Auto) 64.5% (40-74) Lymphocytes (%) (Auto) 18.4% (14-46) Monocytes (%) (Auto) 13.4% (4-12) Eosinophils (%) (Auto) 2.9% (0-5) Basophils (%) (Auto) 0.2% (0-3) Sodium Level 136mEq/L (134-144) Potassium Level 4.4mEq/L (3.5-5.2) Chloride Level 96mEq/L (97-108) Carbon Dioxide Level 30mmol/L (18-29) Blood Urea Nitrogen 47mg/dL (8-27) Creatinine 1.68mg/dL (0.76-1.27) Estimat Glomerular Filtration Rate 42mL/min (>59) Glucose Level 252mg/dL (60-99) Calcium Level 8.0mg/dL (8.5-10.1) Total Bilirubin 0.5mg/dL (0.0-1.2) Aspartate Amino Transf (AST/SGOT) 24U/L (0-50) Alanine Aminotransferase (ALT/SGPT) 15U/L (0-44) Alkaline Phosphatase 71U/L (25-160) Total Protein 6.1g/dL (6.4-8.4) Albumin 3.2g/dL (3.4-5.0) Discharge Medications Discharge Medications Albuterol-Expunged Drug, Do Not Renew! (Albuterol-Expunged Drug, Do Not Renew!) 8.5 Gm Hfa.aer.ad 2 PUFFS IH Q3-4HP (Reported) for shortness of breath Alfuzosin-Expunged Drug, Do Not Renew! (Uroxatral-Expunged Drug, Do Not Renew!) 10 Mg Tablet 10 MG PO DAILY (Reported) for prostate Allopurinol-Expunged Drug, Do Not Renew! (Allopurinol-Expunged Drug, Do Not Renew!) 300 Mg Tablet 300 MG PO DAILY (Reported) for gout Apixaban (Eliquis) 5 Mg Tablet 5 MG PO BID Prescribed by: SHERMAN PADRON, Apixaban (Eliquis) 5 Mg Tablet 10 MG PO BID Prescribed by: SHERMAN PADRON, Ascorbic Acid-Expunged Drug, Do Not Renew! (Vitamin C-Expunged Drug, Do Not Renew!) 500 Mg Tablet 500 MG PO DAILY (Reported) vitamin supplement Aspirin-Expunged Drug, Do Not Renew! (Aspirin-Expunged Drug, Do Not Renew!) 81 Mg Tablet 81 MG PO DAILY (Reported) for heart Beclomethasone Dip-Expunged Drug, Do Not Willi (Qvar 40-Expunged Drug, Do Not Renew!) 120 Puffs/8.7 Gm Aero 1 PUFFS INH BID (Reported) for lungs Furosemide (Furosemide) 20 Mg Tab 20 MG PO DAILY Prescribed by: SHERMAN PADRON DO Insulin Aspart-Expunged Drug, Do Not Renew! (Novolog-Expunged Drug, Do Not Renew !) 100 U/Ml Cartridge 10-20 U SQ TIDWM (Reported) for blood sugar Insulin Glargine-Expunged Drug, Do Not Renew! (Lantus-Expunged Drug, Do Not Renew!) 100 Unit/1 Ml Vial 60 UNIT SQ HS (Reported) for blood sugar Levofloxacin-Expunged Drug, Do Not Renew! (Levaquin-Expunged Drug, Do Not Renew! ) 750 Mg Tablet 750 MG PO DAILY (Reported) for pnuemonia Metoprolol Succinate ER (Metoprolol Succinate ER) 50 Mg Tab.er.24h 50 MG PO DAILY Prescribed by: SHERMAN PADRON DO Potassium Chloride (Potassium Chloride) 10 Meq Tab.er.prt 10 MEQ PO DAILY TAKE WITH FOOD Prescribed by: SHERMAN L APURVA, DO Sertraline-Expunged Drug, Choose New Med! (Sertraline-Expunged Drug, Choose New Med!) 100 Mg Tablet 100 MG PO DAILY (Reported) for depression Simvastatin-Expunged Drug, Choose New Med! (Simvastatin-Expunged Drug, Choose New Med!) 40 Mg Tablet 40 MG PO HS (Reported) for high cholesterol Miscellaneous Medications Cholecalciferol (Vitamin D3) (Vitamin D3) 1,000 Unit Tab.chew 1,000 UNIT PO ( Reported) Followup Plan Discharge Diet: Heart Healthy Discharge Activity: Limited until seen by PCP Patient Instructions You are being sent home with home health services. For your heart, continue furosemide at 20 mg once daily.Start metoprolol succinate 50 mg once daily and potassium chloride 10 mEq once daily. Stop metolazone. We need to continue to monitor your kidney function and blood pressure. Please make sure to follow up with Dr. Duke in the next 7-10 days to monitor your basic metabolic panel. If your kidney function and blood pressure allow, you may be re-started on lisinopril 5 mg once daily by your ethylbenzene oxidizer. For the blood clot in your leg, continue apixaban 10 mg by mouth twice per day for 7 days and then 5 mg twice per day there after. The 10 mg twice per day was started on 05/26/2016 and you received one dose today. You need to take one dose of apixaban 10 mg this evening. You need to continue 10 mg twice per day until 06/01/2016. On 06/02/2016, you start 5 mg by mouth twice per day there after until re-evaluated by your primary care provider. Continue an aspirin 81 mg once daily. Continue your insulin as prescribed. Continue to modify your diet for better blood glucose control. The Diabetes Solution by Dr. Bowman is a book that is a good resource about diet changes to help control your diabetes better. Continue oxygen at 4 liters as previously used. Follow up with your primary care provider Dr. Duke in 1 week. Follow up with your ethylbenzene oxidizer in 1-2 weeks. Follow-up Provider: Roberth Duke MD Follow-up with PCP in: 1 week Provider: Ladarius Graf MD Follow-up in: 1 week (1-2 weeks) Time spent Greater than 30 minutes was spent in preparation of discharge with greater than 50% of that time dedicated to patient counseling and coordination of care. . Attending Statement The patient was seen and examined together with Dr. Padron on 05/30/2016 and I agree with the history, exam and plan as outlined in the note above. . copies to: Roberth Duke MD; Ladarius Graf MD, Marissa L DO May 29, 2016 10:59 Tuan Leslie MD Jun 02, 2016 17:38
== END 2016-05-30 15:12 | disposition home health service (06) | DRG 309 ==
LOC: PCC 21:34
PROVIDERS: ADMIT Hospitalist; ATTEND Hospitalist
PROC: 3E040RZ Introduction of Antiarrhythmic into Central Vein, Open Approach (ICD-10-PCS; principal; 2016-05-26)
DX: I48.0 Paroxysmal atrial fibrillation (principal); I82.402 Acute embolism and thrombosis of unspecified deep veins of left lower extremity; I50.22 Chronic systolic (congestive) heart failure; J96.10 Chronic respiratory failure, unspecified whether with hypoxia or hypercapnia; E87.1 Hypo-osmolality and hyponatremia; I48.91 Unspecified atrial fibrillation; E87.6 Hypokalemia; I25.10 Atherosclerotic heart disease of native coronary artery without angina pectoris; I10 Essential (primary) hypertension; E78.5 Hyperlipidemia, unspecified; J84.10 Pulmonary fibrosis, unspecified; G47.33 Obstructive sleep apnea (adult) (pediatric); J45.909 Unspecified asthma, uncomplicated; M19.042 Primary osteoarthritis, left hand; M10.9 Gout, unspecified; Z66 Do not resuscitate; R29.6 Repeated falls; E11.65 Type 2 diabetes mellitus with hyperglycemia; M19.041 Primary osteoarthritis, right hand; Z79.51 Long term (current) use of inhaled steroids; Z87.891 Personal history of nicotine dependence; Z79.4 Long term (current) use of insulin; Z99.81 Dependence on supplemental oxygen